=== PATIENT | female | born 1955 | race Caucasian/White ===

== ENCOUNTER → 2017-01-07 | Outpatient (CLI) | payer OTHER ==
[~2017-01-07] MED LIST: ANAS1TAB19 PO; ATEN-173 PO; CALC-51 PO; CAND32TA2 PO; CERTKIT SQ; CHOL100010 PO; CLB/200 PO; CYAN100020 PO; GABA-113 PO; GING1CAP2 PO; LEVO75TA5 PO; MULT-506 PO; OMEGCAP2 PO; tumeric PO
[2017-01-07 17:44] LABS: THYROID STIMULATING HORMONE 1.08 uIu/ml (0.300-4.500)
== END | disposition home or self-care (01) ==
LOC: C.LABPBG 11:18
PROVIDERS: ATTEND Family Medicine
DX: E03.9 Hypothyroidism, unspecified (principal)

== ENCOUNTER → 2017-02-16 | Outpatient (CLI) | payer OTHER ==
--- NOTE | 2017-04-01 09:57 | CODING QUERY MEDICAL NECESSITY ---
SUPPORTING DIAGNOSIS NEEDED A supporting diagnosis is required for the test/procedure performed on this patient in order for us to be reimbursed by the patient's insurance. Please provide a supporting diagnosis for the following test/procedure listed below next to the test name along with your signature. *If there is no additional diagnosis for this patient that would support the following test/procedure please document that below next to the test/procedure. Test(s)/Procedure(s) that require a supporting diagnosis: * DXA, BONE DENSITY AXIAL DIAGNOSIS: Provider Signature: Date: Thank you Melba [employer] Information Management Once completed, please kindly fax back to [phone] For questions please call [phone]
== END | disposition home or self-care (01) ==
LOC: C.MAMM 12:29
PROVIDERS: ATTEND Internal Medicine Hematology & Oncology
DX: C50.919 Malignant neoplasm of unspecified site of unspecified female breast (principal); M85.851 Other specified disorders of bone density and structure, right thigh; M85.852 Other specified disorders of bone density and structure, left thigh

== ENCOUNTER → 2017-08-11 | Outpatient (CLI) | payer OTHER ==
[~2017-08-11] MED LIST changes: -OMEGCAP2 PO
[2017-08-11 12:58] LABS: BASO ABS # 0.08 K/uL (0-0.2); EOS % 6.5 %; EOS ABS # 0.51 K/uL (0-0.5); HEMATOCRIT 39.9 % (37-47); HEMOGLOBIN 13.2 g/dL (12.0-16.0); IG# 0.02 K/uL (0.00-0.02); LYMPH % 29.4 %; MEAN CELL VOLUME 93.7 fL (80-100); MEAN CORPUSCULAR HGB CONC 33.1 g/dl (32-36); MEAN PLATELET VOLUME 9.3 fL (7.4-10.4); MONO % 8.7 %; MONO ABS # 0.68 K/uL (0.11-0.59); NEUT % 54.1 %; NEUT ABS # 4.23 K/uL (1.4-6.5); PLATELET COUNT 235 K/uL (130-400); RED CELL DISTRIBUTION WIDTH CV 14.3 % (11.5-14.5); RED CELL DISTRIBUTION WIDTH SD 48.8 fL (36.4-46.3); WHITE BLOOD COUNT 7.82 K/uL (4.8-10.8)
[2017-08-11 13:18] LABS: ALBUMIN 3.8 gm/dl (3.4-5.0); ALT/SGPT 143 U/L (12-78); AST/SGOT 82 U/L (15-37); BLOOD UREA NITROGEN 12 mg/dl (7-18); CALCIUM 9.3 mg/dl (8.5-10.1); CARBON DIOXIDE 28 mmol/L (21-32); CREATININE 0.82 mg/dl (0.60-1.20); GLUCOSE 104 mg/dl (70-99); POTASSIUM 4.3 mmol/L (3.5-5.1); SODIUM 140 mmol/L (136-145)
[2017-08-11 13:21] LABS: ALKALINE PHOSPHATASE 81 U/L (45-117); TOTAL PROTEIN 8.2 gm/dl (6.4-8.2)
== END | disposition home or self-care (01) ==
LOC: C.LABPBG 11:04
PROVIDERS: ATTEND Internal Medicine Hematology & Oncology
DX: C50.912 Malignant neoplasm of unspecified site of left female breast (principal)

== ENCOUNTER → 2017-08-19 | Outpatient (CLI) | payer OTHER ==
[~2017-08-19] MED LIST changes: +MELO7.5T5 PO; +losartin
[2017-08-19 13:04] VITALS: BP 139/80; PULSE 66; TEMP 36.8; O2SAT 96
--- NOTE | 2017-08-19 13:59 | Radiation Oncology Follow-Up ---
Radiation Oncology Follow-Up Date of Visit Aug 19, 2017. Reason For Visit 6 month follow up Radiation Completion Date 12/22/16 Diagnosis (1) Breast cancer Status: Acute Onset Date: 09/11/2016 Histology Subtype: ductal Stage: l Permanent Comment: Abnormal right breast mammogram 08/14/2016 Status post stereotactic biopsy 08/27/2016 revealing invasive ductal carcinoma, grade 3 Estrogen receptor positive, progesterone receptor positive, HER-2/nerissa negative Status post MRI Status post mammotome biopsy right breast 10/02/2016 benign Status post partial mastectomy and sentinel lymph node biopsy 10/09/2016 Stage pT1b [id number] Oncotype DX 24 Status post completion of radiation therapy utilizing hypo-fractionation. Treatment completed 12/22/2016. She received 5130 cGy. Last Edited By: Tiffany Franklin on Jan 06, 2017 09:47 History of Present Illness Ms. Cavazos is a 61-year-old female with a history of psoriatic arthritis and rheumatoid arthritis who recently presented for her routine screening mammography on 08/14/2016 which did reveal a concerning mass in the right breast at the 12 o'clock position. The patient underwent a biopsy of the right breast mass on 08/27/2016 which revealed invasive ductal carcinoma that was grade 3 (no hormonal receptor information is available from pathology report). The patient was then referred to Dr. Robbins at [facility] [place]. The patient subsequently underwent a bilateral MRI of the breast on 09/16/2016 which revealed a peripherally enhancing mass the right breast which measured 1.7 cm in the greatest dimension as well as a linear non-mass enhancement in the right breast in the 7 o'clock position. The patient then underwent a biopsy of the lesion at the 7 o'clock position in the right breast that only revealed ductal hyperplasia and no evidence of malignancy. The patient then underwent a right breast lumpectomy and sentinel lymph node biopsy on 10/09/2016 which revealed invasive ductal carcinoma that is grade 3 and measured 0.8 cm in the greatest dimension. There was no evidence of lymphovascular space invasion and the margins were negative for both invasive ductal carcinoma and ductal carcinoma in situ. The tumor is estrogen receptor positive, progesterone receptor positive and HER-2 negative. One sentinel lymph node was excised and that was negative for metastatic carcinoma. The Oncotype DX study was sent by Dr. Robbins and the results are pending. Patient underwent CT seen in relation and was found to be a candidate for hypo- fractionation. She completed treatment 12/16/2016. She received 5130 cGy. The patient was seen in consultation by Dr. Raffy Lawrence for medical oncology. Dr. Lawrence discussed potentially systemic chemotherapy and is awaiting the results from the Oncotype DX study; the patient will be seen again in follow-up with medical oncology next week to discuss the results of the Oncotype DX study. Dr. Lawrence is also recommended consideration of anti- hormonal therapy. The Oncotype DX was 24. She will return to our office and had a CT simulation. She was found to be a candidate for hypo-fractionation. Radiation was completed 12/22/2016. She received 5130 cGy. Interim History She has noted no masses of the breast. She does have some tenderness of the lateral side of the breast. She also notices some fullness when she first gets up in the morning. She sleeps on her right side. There is no visible edema. The fullness then resolves quickly after she is up and moving. Because of the sensitivity of the chest wall wearing a bra is uncomfortable. She does not wear her bra then when she is home. She has had follow-up mammography. She is scheduled for a mammogram in [place]. She will have a copy of all of the results forwarded to our office. Allergies Coded Allergies: Morphine (Verified Allergy, Unknown, Cough, vomiting, and urinary retention, 11/04/16) Sulfamethoxazole w/Trimethoprim (Verified Allergy, Unknown, Itchy rash, 11/04/16) Home Medications Scheduled Anastrozole (Arimidex), 1 TAB PO DAILY Atenolol (Tenormin), 25 MG PO DAILY Calcium Carbonate-Vitamin D (Calcium), 800 MG PO DAILY Certolizumab Pegol (Cimzia), 200 MG SQ MONTHLY Cholecalciferol (Vitamin D), 1,000 INTER.UNIT PO DAILY Cyanocobalamin (Vitamin B12), 1 TAB PO DAILY Gabapentin (Neurontin), 300 MG PO BID Nona (Zingiber Officinalis) (Nona Root), 1 CAP PO BID Levothyroxine Sodium (Levothyroxine Sodium), 1 TAB PO DAILY Meloxicam (Mobic), 15 MG PO DAILY Multivitamin (Multivitamin), 1 TAB PO DAILY [losartin], 100 d [tumeric], 1 CAP PO BID Review of Systems Gastrointestinal: Symptoms: WNL Oral: Symptoms: No Problems Respiratory: Symptoms: WNL Urinary: Symptoms: WNL Skin: Symptoms: No Problems Breast: Right Upper Arm Measurement: 28.5 Right Mid Arm Measurement: 25.5 Right Wrist Measurement: 17.0 Left Upper Arm Measurement: 29.0 Left Mid Arm Measurement: 25.0 Left Wrist Measurement: 17.0 Arm Dominence: Right Physical Exam Vital Signs Date Time Temp Pulse Resp B/P (MAP) Pulse Ox O2 Delivery O2 Flow Rate FiO2 08/19/17 13:04 36.8 66 18 139/80 96 Fatigue: None General Appearance: no apparent distress Eyes: normal inspection, EOMI ENT: normal ENT inspection, hearing grossly normal Neck: no adenopathy, thyroid normal Respiratory/Chest: lungs clear, no respiratory distress, no accessory muscle use Breast: Breast examination reveals well-healed incisions of the right breast. There are no masses or tenderness no axillary adenopathy. She has resolving hyperpigmentation. There is small amount of edema centrally of the breast. Using the [place] score cosmesis she has a good outcome. Left breast showed no masses or tenderness and no axillary adenopathy. Cardiovascular: regular rate, rhythm, no gallop, no murmur Abdomen: non tender, soft Extremities: no pedal edema Neurologic/Psychiatric: no motor/sensory deficits, alert, normal mood/affect Skin: warm/dry Pain Management Patient Reports Pain: No Pain Location: None Patient Preferred Pain Scale: 0 - 10 Initial Pain Intensity: 0.0 Pain Management Plan Her pain is currently controlled. Laboratory Laboratory Results: not applicable Pathology Pathology Results: not applicable Imaging Imaging Studies: were reviewed, and pertinent findings noted below Assessment & Plan She was seen and examined by Dr. Salguero. Continue scheduled mammography. She has a mammogram scheduled in [place] later this month. Dr. Lawrence has sent an order. She continues on Arimidex. Continue follow-up with medical oncology and her primary care physician as well as rheumatologists. We asked her to return to our office in 1 year. She may call our office if she has any questions or concerns in the interim. Assessment & Plan (Attending) ADDENDUM: I agree with note created by Tiffany Franklin PA-C. I reviewed the patient's chart and information with her. I have examined and evaluated the patient. I reviewed relevant clinical information and answered the patient's and /or family's questions. DIRECTOR MEDICAL SURGICAL Total Time In Follow-Up I spent 20 minutes speaking to the patient and performing examination. I spent 15 minutes reviewing information and completing this note. Total Time (Attending) In Follow-Up I spent 15 minutes examining and counseling the patient. DIRECTOR MEDICAL SURGICAL Copy To Raffy Lawrence MD; Dusty Posadas M.D.; Purnima Robbins D.O.; Avila Bowie D.O. Problem Qualifiers (1) Breast cancer: Breast location: upper outer quadrant of breast Estrogen receptor status: positive Patient sex: female Laterality: right Qualified Codes: C50.411 - Malignant neoplasm of upper-outer quadrant of right female breast; Z17.0 - Estrogen receptor positive status [ER+]
== END | disposition home or self-care (01) ==
LOC: C.ONC 12:53
PROVIDERS: ATTEND Physician Assistant Medical
DX: Z08 Encounter for follow-up examination after completed treatment for malignant neoplasm (principal); Z92.3 Personal history of irradiation; Z85.3 Personal history of malignant neoplasm of breast

== ENCOUNTER → 2017-11-19 | Outpatient (CLI) | payer OTHER ==
[~2017-11-19] MED LIST changes: -CAND32TA2 PO; -CLB/200 PO
[2017-11-19 13:04] LABS: BASO % 1.5 %; BASO ABS # 0.13 K/uL (0-0.2); EOS % 7.2 %; EOS ABS # 0.62 K/uL (0-0.5); HEMATOCRIT 40.5 % (37-47); HEMOGLOBIN 13.8 g/dL (12.0-16.0); IG# 0.02 K/uL (0.00-0.02); LYMPH % 29.7 %; LYMPH ABS # 2.56 K/uL (1.2-3.4); MEAN CORPUSCULAR HGB CONC 34.1 g/dl (32-36); MEAN PLATELET VOLUME 9.3 fL (7.4-10.4); MONO % 9.2 %; MONO ABS # 0.79 K/uL (0.11-0.59); NEUT % 52.2 %; NEUT ABS # 4.49 K/uL (1.4-6.5); PLATELET COUNT 266 K/uL (130-400); RED CELL DISTRIBUTION WIDTH CV 13.8 % (11.5-14.5); RED CELL DISTRIBUTION WIDTH SD 47.6 fL (36.4-46.3); WHITE BLOOD COUNT 8.61 K/uL (4.8-10.8)
[2017-11-19 14:11] LABS: ALT/SGPT 141 U/L (12-78); AST/SGOT 77 U/L (15-37); BLOOD UREA NITROGEN 13 mg/dl (7-18); CALCIUM 9.9 mg/dl (8.5-10.1); CARBON DIOXIDE 27 mmol/L (21-32); CREATININE 0.89 mg/dl (0.60-1.20); GLUCOSE 88 mg/dl (70-99); SODIUM 138 mmol/L (136-145)
[2017-11-19 14:12] LABS: ALKALINE PHOSPHATASE 94 U/L (45-117); TOTAL PROTEIN 8.7 gm/dl (6.4-8.2)
== END | disposition home or self-care (01) ==
LOC: C.LABPBG 10:22
PROVIDERS: ATTEND Internal Medicine Hematology & Oncology
DX: C50.912 Malignant neoplasm of unspecified site of left female breast (principal)

== ENCOUNTER → 2018-03-09 | Outpatient (CLI) | payer OTHER ==
[~2018-03-09] MED LIST changes: -ANAS1TAB19 PO; +ANAS1TAB59 PO; +OPTIRAY 320 IV PRN
--- NOTE | 2018-03-09 16:31 | DIAGNOSTIC IMAGING REPORT ---
CT (CHEST) THORAX WITH CT DOSE: 635.80 mGy.cm HISTORY: Pain RIGHT RIB PAIN, NEW ONSET RUQ PAIN TECHNIQUE: Multiaxial CT images of the chest were performed following the intravenous administration of contrast. A dose lowering technique was utilized adhering to the principles of ALARA. COMPARISON: None. FINDINGS: Postoperative changes right breast. Lungs are considered clear. No focal infiltrate. No significant mediastinal or hilar adenopathy. IMPRESSION: No significant abnormality identified within the chest. The above report was generated using voice recognition software. It may contain grammatical, syntax or spelling errors. Electronically signed by: Jeferson Malone M.D. 03/09/2018 4:30 PM Dictated Date/Time: 03/09/2018 4:28 PM
--- NOTE | 2018-03-09 16:34 | DIAGNOSTIC IMAGING REPORT ---
ABD WITH IV AND ORAL CONT (CT) CT DOSE: HISTORY: Pain RIGHT RIB PAIN, NEW ONSET RUQ PAIN TECHNIQUE: Multiaxial CT images of the abdomen was performed following the use of intravenous and oral contrast. A dose lowering technique was utilized adhering to the principles of ALARA. COMPARISON STUDY: None. FINDINGS: Lung bases are clear. Postoperative changes again noted involving the right breast. Replacement of the liver. Gallbladder is negative for distention. Kidneys enhance uniformly. The adrenal glands are normal. Diffuse colonic diverticulosis. No evidence for acute diverticulitis. IMPRESSION: Fatty infiltration of liver. Otherwise negative study. The above report was generated using voice recognition software. It may contain grammatical, syntax or spelling errors. Electronically signed by: Jeferson Malone M.D. 03/09/2018 4:33 PM Dictated Date/Time: 03/09/2018 4:30 PM
== END | disposition home or self-care (01) ==
LOC: C.CTS 10:25
PROVIDERS: ATTEND Internal Medicine Hematology & Oncology
DX: C50.912 Malignant neoplasm of unspecified site of left female breast (principal); R07.81 Pleurodynia; R10.11 Right upper quadrant pain

== ENCOUNTER 2022-03-31 05:10 | Observation (INO) ==
--- NOTE | 2022-03-30 10:23 | Anesthesiology Consultation ---
Date of Service March 30, 2022 Assessment & Plan (1) Encounter for pre-operative examination: - COVID screening: Per assessment on 03/30: No known COVID-19 positive contacts or current COVID-19 related symptoms. Travel screen negative. Pt vaccinated. Preop Covid test done 03/30 ([place]) is pending. - Outpatient joint pathway: Per OR booking comments, plan for outpatient joint program. Patient is acceptable candidate for outpatient joint program from anesthesia standpoint pending perioperative course. Surgeon's office responsible for assessment of pt motivation/support/completion of same day joint program preop requirements. - PCP office visit (03/17/22): "OK for sx" - Check [facility] AM DOS Chart Review Chart Review: Acceptable Risk for Surgery and Patient NOT seen in Pre Admission Testing History Surgery Operation Date: 03/31/22 07:00 Proposed Procedures p Left Total Knee Arthroplasty - Isai Gordon DO Height/Weight Height: 5 ft 2 in Weight: 68.492 kg Allergies Allergy/AdvReac Type Severity Reaction Status Date / Time Bactrim Allergy Unknown Itchy rash Verified 11/04/16 11:01 morphine Allergy Unknown Cough, Verified 03/30/22 10:28 vomiting, and urinary retention sulfamethoxazole Allergy Unknown Itchy rash Verified 03/30/22 10:28 trimethoprim Allergy Unknown Itchy rash Verified 03/30/22 10:28 Medications Home Medications Medication Instructions Recorded Confirmed Last Taken denosumab 60 mg/mL subcutaneous 60 mg subcut UD 08/09/19 03/30/22 Unknown syringe (Prolia) losartan 100 mg tablet (Cozaar) 100 mg PO QAM 08/09/19 03/30/22 Unknown anastrozole 1 mg tablet 1 mg PO QAM 07/25/20 03/30/22 Unknown certolizumab pegol 400 mg/2 mL 400 mg subcut Q30D 07/25/20 03/30/22 Unknown (200 mg/mL x2) subcutaneous syringe kit gabapentin 300 mg capsule 300 mg PO BID 07/25/20 03/30/22 Unknown kvng (Zingiber officinalis) 250 250 mg PO QAM 07/25/20 03/30/22 Unknown mg capsule multivitamin (Daily Multi-Vitamin 1 tab PO UD 07/25/20 03/30/22 Unknown tablet) atenolol 25 mg tablet 25 mg PO QAM 03/30/22 03/30/22 Unknown calcium carbonate 600 mg-vitamin 1 tab PO UD 03/30/22 03/30/22 Unknown D3 20 mcg (800 unit) chewable tablet (Caltrate 600 plus D) cinnamon bark 500 mg capsule 500 mg PO QAM 03/30/22 03/30/22 Unknown levothyroxine 75 mcg tablet 75 mcg PO QAM 03/30/22 03/30/22 Unknown turmeric 400 mg capsule 400 mg PO QAM 03/30/22 03/30/22 Unknown Past Medical History Medical History Breast cancer Right Diabetes Diet controlled History of thyroid nodule Hx of degenerative disc disease Neck Hypertension Osteoarthritis Osteoporosis Rheumatoid arthritis Stenosis, cervical spine ROM limitations per pt- "Be careful" with positioning per PAT RN phone interview Past Family History Family History Mother Hypertension Family/Other No problems noted. Grandmother (Maternal) Breast cancer, Onset Age: 58 Denies family history of Ovarian cancer Colorectal cancer Uterine cancer Past Surgical History Surgical History History of lumpectomy of right breast and LND History of open reduction and internal fixation (ORIF) procedure IM rodding lt History of thyroid surgery marlena-thyroidectomy History of tubal ligation Hx of hand surgery lt middle finger Hx of total knee arthroplasty rt Nausea and vomiting after administration of anesthetic agent S/P S/P cataract surgery rt/lt S/P dilation and curettage S/P JENNIE-BSO S/P wisdom tooth extraction Social History Smoking Status: Never smoker Hx Alcohol Use: No Hx Substance Use: No Testing Laboratory Results 03/03/22 WBC 7.43 H/H 13.1/405 PLATELETS 265 SODIUM 139 POTASSIUM 4.3 CHLORIDE 108 CO2 27.0 BUN 14.8 CREATININE 0.93 GLUCOSE 90 PT 11.7 PTT 29.6 INR 1.01 UA trace leuk est, 1+ blood, negative nitrite (no growth on preliminary report) Electrocardiogram Date: 02/09/22 SR with first degree AVB at 61bpm. NS TWA. Chest X-Ray Date: 02/09/22 Findings: + NAD
--- NOTE | 2022-03-30 10:28 | History & Physical Report ---
Date of Service March 30, 2022 date of surgery: 03/31/22 Procedure: Left Total Knee Arthroplasty Surgeon: Iasi Gordon Assessment & Plan (1) Arthritis of knee, left: Plan: Risks and benefits of procedure discussed in detail today, patient would like to proceed with a left total knee replacement as scheduled. Will place on ASA 81mg po bid x 1 month post op, f/u 2 weeks post op for routine post-operative care and x-ray, sooner if having any problems. will make arrangements for HHPT at the time of discharge, outpatient joint program. At this point in time, has failed conservative measures and would like to proceed with surgical intervention. Schedule for Iovera treatment prior to her surgery. The risks and benefits have been discussed including, but not limited to, risk of infection, nerve injury, stiffness, loss of motion, failure to improve, etc. Reasonable outcomes and options of treatment were discussed. An explanation of appropriate alternatives to the procedure that may be advantageous were discussed and their risks and benefits, as well as the risks and benefits of not proceeding with treatment. I offered to answer any additional inquiries concerning the treatment involved. All the patient's questions were answered. The patient is agreeable, understanding of the treatment plan and alternatives, and wishes to proceed with the treatment plan. History of Present Illness Chief Complaint: left knee pain Primary Care Provider: Avila Rodriguez is a pleasant 66-year-old female who presents for preop evaluation prior to left total knee replacement. She states she had a pain in his knee for many years now which is gradually worsened. Is now affecting her daily activities i ncluding walking standing on down steps. She tried previous injections including cortisone as well as viscosupplementation without relief, she is also undergoing Iovera injection prior. After discussing further treatment options she would like to proceed with a left total knee replacement. she also had prior left knee scope over 20 years ago. Allergies Allergy/AdvReac Type Severity Reaction Status Date / Time Bactrim Allergy Unknown Itchy rash Verified 11/04/16 11:01 morphine Allergy Unknown Cough, Verified 03/30/22 10:28 vomiting, and urinary retention sulfamethoxazole Allergy Unknown Itchy rash Verified 03/30/22 10:28 trimethoprim Allergy Unknown Itchy rash Verified 03/30/22 10:28 Home Medications Medication Instructions Recorded Confirmed Type denosumab 60 mg/mL subcutaneous 60 mg subcut UD 08/09/19 03/30/22 History syringe (Prolia) losartan 100 mg tablet (Cozaar) 100 mg PO QAM 08/09/19 03/30/22 History anastrozole 1 mg tablet 1 mg PO QAM 07/25/20 03/30/22 History certolizumab pegol 400 mg/2 mL 400 mg subcut Q30D 07/25/20 03/30/22 History (200 mg/mL x2) subcutaneous syringe kit gabapentin 300 mg capsule 300 mg PO BID 07/25/20 03/30/22 History kvng (Zingiber officinalis) 250 250 mg PO QAM 07/25/20 03/30/22 History mg capsule multivitamin (Daily Multi-Vitamin 1 tab PO UD 07/25/20 03/30/22 History tablet) atenolol 25 mg tablet 25 mg PO QAM 03/30/22 03/30/22 History calcium carbonate 600 mg-vitamin 1 tab PO UD 03/30/22 03/30/22 History D3 20 mcg (800 unit) chewable tablet (Caltrate 600 plus D) cinnamon bark 500 mg capsule 500 mg PO QAM 03/30/22 03/30/22 History levothyroxine 75 mcg tablet 75 mcg PO QAM 03/30/22 03/30/22 History turmeric 400 mg capsule 400 mg PO QAM 03/30/22 03/30/22 History Past Med/Surg History Medical History Breast cancer rt. Diabetes diet controlled History of thyroid nodule Hx of degenerative disc disease neck, ROM is limited Hypertension Nausea and vomiting after administration of anesthetic agent Osteoarthritis Osteoporosis Rheumatoid arthritis Stenosis, cervical spine "has to be careful w/neck positioning" ROM is limited Surgical History History of lumpectomy of right breast and LND History of open reduction and internal fixation (ORIF) procedure IM rodding lt. History of thyroid surgery marlena-thyroidectomy History of tubal ligation Hx of hand surgery lt. middle finger Hx of total knee arthroplasty rt. S/P S/P cataract surgery rt/lt. S/P dilation and curettage S/P JENNIE-BSO S/P wisdom tooth extraction Family History Mother Hypertension Family/Other No problems noted. 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 Review of Systems Review of Systems: All systems reviewed & are unremarkable except as noted in HPI & below Constitutional: no fever, no chills and no sweats Respiratory: no cough and no dyspnea Cardiovascular: no chest pain, no dyspnea and no orthopnea Gastrointestinal: no abdominal pain, no nausea and no vomiting Musculoskeletal: as per Subjective / HPI Physical Exam Constitutional: WD/WN, vitals as above no acute distress Respiratory: normal respiratory effort, lungs clear to auscultation no respiratory distress, no labored breathing and does not use accessory muscles Cardiovascular: RRR, no murmur, no edema Gastrointestinal (Abdomen): normal bowel sounds, soft, nontender, no hepatosplenomegaly Musculoskeletal: Knee: + knee abnormal to inspection (Left Knee: ), + effusion (+1 effusion), + surgical incision (well healed portals), + limited ROM of knee (ROM 0/3/110), + knee ROM with crepitation, + joint line tenderness (medial joint line) and + Roro's sign positive; no deformity, no skin erythema, no ecchymosis, no valgus laxity, no varus laxity, anterior drawer test negative, Justice's sign negative and pivot shift test negative Results & Data Results & Data ([facility]) Diagnostic Findings 4 views left knee showing degenerative changes noted medial compartment and patellofemoral joint, joint space narrowing and osteophyte present.
[2022-03-31] MEDS ORDERED: GABAPENTIN 300 MG CAP PO SCH (06:00)
[2022-03-31] MEDS ORDERED: LR 500ML BOLUS, THEN 15ML/HR IV SCH (06:00)
[2022-03-31] MEDS ORDERED: ceFAZolin 1000MG 1,000 MG/7.5 ML SYR IV SCH (06:00)
[2022-03-31] MEDS ORDERED: TRANEXAMIC ACID 1,000 MG **IV Pre-op IV SCH (06:00)
[2022-03-31] MEDS ORDERED: TRANEXAMIC ACID 1,000 MG **IV Intra-op IV SCH (06:00)
[2022-03-31] MEDS ORDERED: ACETAMINOPHEN 500 MG TAB PO SCH (06:00)
[2022-03-31] MEDS ORDERED: dexAMETHasone 4 MG TAB PO SCH (06:00)
[2022-03-31] MEDS ORDERED: ROPIVACAINE 0.5% HCL/PF 150 MG, BUPIVACAINE 0.75% MPF 20 ML, EPINEPHrine 30MG/30ML (OR ... INFIL SCH (06:00)
[2022-03-31] MEDS ORDERED: METOCLOPRAMIDE HCL 10 MG TABLET PO SCH (06:00)
[2022-03-31] MEDS ORDERED: FAMOTIDINE 20 MG TAB PO SCH (06:00)
[2022-03-31] MEDS ORDERED: ROPIVACAINE 0.5% 5 MG/ML 30 ML VIAL ONE (06:23)
[2022-03-31] MEDS ORDERED: MEPIVACAINE HCL 1.5% 30 ML VIAL ONE (06:23)
[2022-03-31] MEDS ORDERED: MIDAZOLAM HCL 1 MG/ML 2ML VIAL ONE (06:24)
[2022-03-31] MEDS ORDERED: fentaNYL citrate 100 MCG/2 ML VIAL ONE (06:25)
[2022-03-31] MEDS ORDERED: ORTHO JOINT ANESTHETIC ONE (06:33)
[2022-03-31] MEDS ORDERED: ATROPINE SULFATE 0.1 MG/ML 10ML SYR IV PRN (06:46)
[2022-03-31] MEDS ORDERED: ePHEDrine sulfate 50 MG/ML AMP IV PRN (06:46)
[2022-03-31] MEDS ORDERED: fentaNYL citrate 100 MCG/2 ML VIAL IV PRN (06:46)
[2022-03-31] MEDS ORDERED: ONDANSETRON INJ 2 MG/ML 2 ML VIAL IV PRN ×3 (06:46→15:55)
--- NOTE | 2022-03-31 07:11 | History & Physical Bridge Note ---
Date of Service March 31, 2022 History & Physical Bridge Note I have examined the patient, reviewed the History & Physical and in the interval since the performance of the History & Physical I have noted the following changes of clinical significance: no changes noted
[2022-03-31] MEDS ORDERED: PROPOFOL IV EMULSION 10 MG/ML 20 ML VIAL IV ONE (07:34)
[2022-03-31] MEDS ORDERED: ONDANSETRON INJ 2 MG/ML 2 ML VIAL ONE ×2 (07:34→08:51)
--- NOTE | 2022-03-31 08:29 | Operative Report ---
Post Operative Report Pre & Post Diagnosis Operation Date: 03/31/22 07:00 Pre-Op Diagnosis: Left Knee Degeneartive Joint Disease Post-Op Diagnosis: Left Knee Degeneartive Joint Disease I identified the patient and participated in the time-out.: Yes Procedure Operation Date: 03/31/22 07:00 Actual Procedures p Left Total Knee Arthroplasty(Left) Terell Biomet persona size femur 7 narrow tibia EE polytwelve medial constrained patella 28 oval- Isai Gordon DO Surgeon Isai Gordon DO Circuit Board Assembler Zion RUSSELL Estimated Blood Loss 5 Findings Consistent with Post-Op Diagnosis Patient presents with severe end-stage tricompartmental degenerative joint disease eburnated [id number] varus alignment subchondral sclerosis marginal osteophytes and moderate to large effusion Specimens Bone and cartilage Drains Medium bore Hemovac Anesthesia Type MAC Spinal Regional Complications none Disposition Accompanied Patient To Recovery: No Disposition: Recovery Room Indications Patient presents after failed attempted conservative management clinic physical therapy anti-inflammatories relative rest activity modification corticosteroid injection viscosupplementation above intraoperative findings were noted Description of Procedure After proper prepping and draping of the left lower extremity anterior midline incision was made over the region of the extensor extensor mechanism after meticulous hemostasis was obtained and maintained in subcutaneous tissues a medial parapatellar incision was made The patella was subluxed lateralward the medial lateral gutter were cleaned from any hypertrophic synovitis and scar tissue of the distal femoral block was placed and the distal femoral osteotomy cut was made subsequently the chamfers anterior and posterior osteotomy cuts were made utilizing the 4-in-1 block the tibia was subsequently subluxed anteriorward medial and ateral meniscal remnants were excised in their entirety remnants of the anterior and posterior cruciate ligaments were excised in their entirety excellent exposure of the proximal tibia was obtained the tibial osteo sukh guide was placed on the proximal tibial osteotomy cut was made once again the knee was irrigated with copious amounts of sterile saline solution the patella was subsequently everted lateralward thickened scar tissue around the patella was removed the patella was subsequently cut utilizing a freehand technique and was drilled prepared for final preparation and placement of patella socially flexion-extension gaps were checked and the equal and symmetric trials were placed to the appropriate femoral and tibial trials with poly-spacer being placed for equal flexion and extension gaps and full range of motion including extension to 0 and flexion to 140 the trial components after having been taken to recovery range of motion was subsequently removed meticulous hemostasis was obtained and maintained subsequently a knee block injection of joint cocktail including ropivacaine 0.5% 150 mg. Bupivacaine 0.5% epinephrine 1-200,030 mL's toradol 30 mg dexamethasone 4 mg ketamine 10 mg clonidine 100 micrograms normal saline solution 30 mg was infiltrated into the soft tissues of the posterior knee medial lateral gutters and periosteal synovium special attention was paid to protect neurovascular structures at all times subsequently trial components having been removed the knee was irrigated with sterile saline solution. debris was removed the proximal tibia was subsequently prepared and was made ready for the placement of the tibial component tibial component was also cemented and tamped into position the femoral component was subsequently placed and cemented in the position the patellar component was subsequently cemented in position because hemostasis once again obtained and maintained wound having been thoroughly irrigated with debridement and debridement lavage was performed as well as a medial parapatellar incision closed with #1 Vicryl in interrupted fashion subcutaneous was closed with #2 Vicryl skin was closed with skin clips. PA-C was necessary for prepping and drapping as well as wound closure of deep fascia Sub cutaneous tissue and skin and was necessary for the case. A sterile compressive dressing was placed patient was taken to recovery in stable condition of report dictated by Evan I attest to the content of the Intraoperative Record and any orders documented therein. Any exceptions are noted below.Due to the complex nature of the proce dure, the entire surgery was performed with the operational assistance of Zion RUSSELL. The camp assistant, under direct supervision, was involved in the actual performance of all aspects of the surgical procedure including hemostasis, tissue retraction and incision, instrument management, patient positioning, and wound closure. I attest to the content of the Intraoperative Record and any orders documented therein. Any exceptions are noted below.
[2022-03-31] MEDS ORDERED: KETOROLAC 30 MG/ML VIAL ONE (08:46)
[2022-03-31] MEDS ORDERED: HYDROmorphone INJ 0.5 MG/0.5 ML SYR IV PRN ×2 (09:09→15:55)
[2022-03-31] MEDS ORDERED: oxyCODONE HCL IR 5 MG TAB (IMMEDIATE RELEASE) PO PRN ×2 (09:09)
--- NOTE | 2022-03-31 09:30 | XRay Report ---
XR knee LT 1 or 2V routine CLINICAL HISTORY: Postoperative evaluation. COMPARISON: CT of the left knee February 04, 2022. FINDINGS: Alignment of the total left knee arthroplasty is anatomic. There is no periprosthetic frac ture or lucency. Intramedullary sandhya with distal screw within the left femur are again noted. Surgical drains are in place. No unexpected radiopaque foreign bodies. IMPRESSION: Expected findings following total left knee arthroplasty. ACT 112: Negative or not required by law. Electronically signed by: Gaurav Caballero M.D. 03/31/2022 9:29 AM
--- NOTE | 2022-03-31 09:43 | Anesthesiology Progress Note ---
Date of Service March 31, 2022 Anesthesia Post Procedure Vital Signs Vital Signs: Temp Pulse Resp BP Pulse Ox O2 Del Method O2 Flow Rate 03/31/22 09:35 60 14 102/51 L 96 Room Air 03/31/22 09:25 60 12 103/51 L 97 Room Air 03/31/22 09:15 69 20 114/62 98 Oxymask 5 03/31/22 09:08 98.8 F 66 16 105/50 L 95 Oxymask 5 03/31/22 05:41 98.2 F 52 L 18 147/95 H 93 Room Air Transfer of Care Handoff Completed per policy Notes Mental Status: alert / awake / arousable and participated in evaluation Patient Amnestic to Procedure: Yes Nausea / Vomiting: adequately controlled Pain: adequately controlled Airway Patency, RR, SpO2: stable & adequate BP & HR: stable & adequate Hydration State: stable & adequate Neuraxial Anesthesia: was administered and sensory block is resolving Anesthetic Complications: no major complications apparent and Pt Satisfied with anesthetic care
[2022-03-31] MEDS ORDERED: NALOXONE HCL 0.4 MG/1 ML VIAL/CARP IV PRN (15:55)
[2022-03-31] MEDS ORDERED: MAGNESIUM HYDROXIDE SUSP 30 ML UDC PO PRN (15:55)
[2022-03-31] MEDS ORDERED: bisacodyL 10 MG SUPP PR PRN (15:55)
[2022-03-31] MEDS: SODIUM CHLORIDE 0.9% 1000ML 1,000 ML IV SCH ×2 (16:38→22:14)
[2022-03-31] MEDS: ASPIRIN 81 MG ECTAB PO SCH (19:54)
[2022-03-31] MEDS: DOCUSATE SODIUM 100 MG CAP PO SCH (19:55)
[2022-03-31] MEDS: GABAPENTIN 300 MG CAP PO SCH (19:56)
[2022-03-31] MEDS: ceFAZolin 1000MG 1,000 MG/7.5 ML SYR IV SCH (19:57)
[2022-03-31] MEDS ORDERED: CALCIUM 600MG + VIT D 400 IU TAB PO SCH (20:00)
[2022-03-31] MEDS ORDERED: SENNA 8.6 MG TAB PO SCH (21:00)
--- NOTE | 2022-03-31 21:10 | Consultation ---
Date of Consultation March 31, 2022 Assessment & Plan (1) Hypotension: improved s/p IV fluids following admission. formal set of orthostatic BPs taken after my visit - these were negative/normal. 500cc more of IV fluid then saline lock. recheck CBC, BMP, mag in am. HOLD atenolol. HOLD losartan. consider cortisol level but hold off for now. (2) Hypertension: HOLD atenolol HOLD losartan see #1 above (3) Diabetes: last hemoglobin a1c was 5.8% in early 2021 repeat level am check BSGs while here change diet to DM diet (4) Arthritis of knee, left: s/p left TKR today by Dr Gordon DVT proph - asa 81mg BID defer pain meds, dispo, etc to ortho team (5) Breast cancer: h/o noted (6) Rheumatoid arthritis: history of noted no active flare f/u with rheum (Dr Bernard) for routine care (7) Hypothyroidism: TSH wnl cont synthroid (8) DVT prophylaxis: asa 81mg BID Plan Thank you for this consult. We will follow with you. History of Present Illness Requesting Physician: Isai Gordon DO Reason for Consultation: post-op hypotension Attending Physician: Isai Gordon DO History of Present Illness 66yo female with h/o RA (and/or psoriatic arthritis) - followed by [facility] Rheumat[facility] Dr Dusty Bernard, HTN, breast cancer, and hypothyroidism. Patient presented earlier today for elective left TKR. Surgery was uneventful; reported EBL of ~5cc. Following recovery in the PACU she attempted to ambulate as she was scheduled to be discharged to home. However, she felt dizzy with such, and her BP was found to be low - documented <100. Instead of discharge she was admitted to the orthopedic floor for observation and IV fluids. During my assessment she reports having had an episode of nausea with emesis after drinking iced tea. She was able to keep some solids down at dinner, however. She denies any dizziness at rest. She denies chronic prednisone use for her arthritis. She is hopeful to ambulate this evening and potentially go home tomorrow. She denies any perioperative chest pain, dyspnea or abd pain. Allergies Allergy/AdvReac Type Severity Reaction Status Date / Time morphine Allergy Severe Cough, Verified 03/31/22 05:36 vomiting, and urinary retention sulfamethoxazole Allergy Intermediate Itchy rash Verified 03/31/22 05:36 trimethoprim Allergy Intermediate Itchy rash Verified 03/31/22 05:36 Bactrim Allergy Unknown Itchy rash Verified 11/04/16 11:01 Home Medications Medication Instructions Recorded Confirmed Type denosumab 60 mg/mL subcutaneous 60 mg subcut UD 08/09/19 03/31/22 History syringe (Prolia) losartan 100 mg tablet (Cozaar) 100 mg PO QAM 08/09/19 03/31/22 History anastrozole 1 mg tablet (Arimidex) 1 mg PO QAM 07/25/20 03/31/22 History certolizumab pegol 400 mg/2 mL 400 mg subcut Q30D 07/25/20 03/31/22 History (200 mg/mL x2) subcutaneous syringe kit (Cimzia) gabapentin 300 mg capsule 300 mg PO BID 07/25/20 03/31/22 History kvng (Zingiber officinalis) 250 250 mg PO QAM 07/25/20 03/31/22 History mg capsule multivitamin (Daily Multi-Vitamin 1 tab PO UD 07/25/20 03/31/22 History tablet) atenolol 25 mg tablet 25 mg PO QAM 03/30/22 03/31/22 History calcium carbonate 600 mg-vitamin 1 tab PO UD 03/30/22 03/31/22 History D3 20 mcg (800 unit) chewable tablet (Caltrate 600 plus D) cinnamon bark 500 mg capsule 500 mg PO QAM 03/30/22 03/31/22 History levothyroxine 75 mcg tablet 75 mcg PO QAM 03/30/22 03/31/22 History acetaminophen 500 mg capsule 1,000 mg PO Q8H pain 14 days #84 03/31/22 Rx caps aspirin 81 mg tablet,delayed 81 mg PO BID 30 days #60 tabs 03/31/22 Rx release (Ecotrin Low Strength) cefadroxil 500 mg capsule 500 mg PO BID #28 caps 03/31/22 Rx oxycodone 5 mg tablet 5 mg PO Q4H PRN pain #30 tabs 03/31/22 Rx polyethylene glycol 3350 17 gram 17 g PO DAILY PRN constipation #5 03/31/22 Rx oral powder packet (Miralax) ea Patient History Medical History (Updated 04/01/22 @ 00:14 by Augustus Gonzalez) Breast cancer Right Diabetes Diet controlled History of thyroid nodule Hx of degenerative disc disease Neck Hypertension Osteoarthritis Osteoporosis Rheumatoid arthritis Stenosis, cervical spine ROM limitations per pt- "Be careful" with positioning per PAT RN phone interview Surgical History History of lumpectomy of right breast and LND History of open reduction and internal fixation (ORIF) procedure IM rodding lt History of thyroid surgery marlena-thyroidectomy History of tubal ligation Hx of hand surgery lt middle finger Hx of total knee arthroplasty rt Nausea and vomiting after administration of anesthetic agent S/P S/P cataract surgery rt/lt S/P dilation and curettage S/P JENNIE-BSO S/P wisdom tooth extraction Family History Mother Hypertension Family/Other No problems noted. 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 Physical Exam Physical Exam: gen - mildly pale but NAD, pleasant eyes - PERRL mouth - MM pasty neck - no JVD heart - RRR, s1 s2, 2/6 systolic murmur RUSB lungs - CTA b/l abd - soft NT ND BS+ ext - <1+ edema left ankle; pulses 2+ b/l musculo - left knee drain in place; dressings intact left knee neuro - strength 5/5 x 4 exts Results & Data ([facility]) Vital Signs (Past 12 Hours) Vital Signs Temp Pulse Pulse Resp BP Pulse Ox Pulse Ox 03/31/22 19:46 36.7 C 72 16 108/45 L 95 03/31/22 16:02 36.4 C L 70 18 139/87 95 03/31/22 15:46 62 18 115/61 96 03/31/22 14:44 65 19 96/52 L 96 03/31/22 13:52 69 18 123/71 97 03/31/22 14:24 97 03/31/22 12:52 60 18 102/52 L 96 03/31/22 11:50 61 18 106/57 L 96 03/31/22 10:50 61 18 113/60 97 03/31/22 09:50 58 L 17 99/55 L 94 03/31/22 10:20 36.5 C 62 16 108/57 L 94 03/31/22 09:45 36.6 C 63 18 104/55 L 95 03/31/22 09:35 60 14 102/51 L 96 03/31/22 09:25 60 12 103/51 L 97 03/31/22 09:15 69 20 114/62 98 03/31/22 09:08 37.1 C 66 16 105/50 L 95 O2 Del Method O2 Flow Rate O2 Flow Rate 03/31/22 19:46 Room Air 03/31/22 16:02 Room Air 03/31/22 15:46 Room Air 03/31/22 14:44 Room Air 03/31/22 13:52 Room Air 03/31/22 14:24 0 03/31/22 12:52 Room Air 03/31/22 11:50 Room Air 03/31/22 10:50 Room Air 03/31/22 09:50 Room Air 03/31/22 10:20 Room Air 03/31/22 09:45 Room Air 03/31/22 09:35 Room Air 03/31/22 09:25 Room Air 03/31/22 09:15 Oxymask 5 03/31/22 09:08 Oxymask 5 Laboratory Results last labs pre-operatively -- September 2021 last TSH - March 2022 (wnl) PG Care Time/CCT Total # of Minutes Spent Total Time Spent with Patient: Total time spent is greater than 50% in coordination of care (as documented) at patient's floor/unit and/or counseling patient: Coding Level of Care Code 95726 Subseq Obs Care Lvl 3 Diagnoses Hypotension I95.9 Hypertension I10 Diabetes E11.9 Arthritis of knee, left M17.12 Breast cancer C50.511; Z17.0 Breast location: lower outer quadrant of breast Estrogen receptor status: positive Patient sex: female Laterality: right Rheumatoid arthritis M06.9 Hypothyroidism E03.9 DVT prophylaxis Z29.9 (1) Breast cancer Breast location: lower outer quadrant of breast Estrogen receptor status: positive Patient sex: female Laterality: right Qualified Code(s): C50.511 - Malignant neoplasm of lower-outer quadrant of right female breast; Z17.0 - Estrogen receptor positive status [ER+]
[2022-03-31] MEDS ORDERED: SODIUM CHLORIDE 0.9% 500 ML IV SCH (22:00)
[2022-03-31] MEDS: ACETAMINOPHEN 500 MG TAB PO SCH (22:14)
[2022-04-01] MEDS: ceFAZolin 1000MG 1,000 MG/7.5 ML SYR IV SCH (04:52)
[2022-04-01] MEDS: ACETAMINOPHEN 500 MG TAB PO SCH (05:37)
[2022-04-01] MEDS ORDERED: LEVOTHYROXINE SODIUM 75 MCG TABLET PO SCH (06:30)
[2022-04-01 06:54] VITALS: BP 94/52; PULSE 74; TEMP 98.4; O2SAT 96
[2022-04-01 07:38] LABS: Hematocrit (blood only) 32.9 % (34.1-44.9); Hemoglobin 10.8 g/dl (12.0-16.0); Mean Corpuscular Hemoglobin 30.5 pg (25.0-34.0); Mean Corpuscular Hgb Conc 32.8 g/dL (32.0-36.0); Mean Corpuscular Volume 92.9 fL (80.0-100.0); Mean Platelet Volume 9.5 fL (9.4-12.3); Platelet Count 226 K/uL (130-400); RDW Coefficient of Variation 13.6 % (11.5-14.5); RDW Standard Deviation 46.7 fL (36.4-46.3); Red Blood Count 3.54 M/uL (3.93-5.22); White Blood Count 19.47 K/ul (4.8-10.8)
--- NOTE | 2022-04-01 07:39 | Hospitalist Progress Note ---
Date of Service April 01, 2022 Assessment & Plan (1) Hypotension: Plan: improved s/p IV fluids following admission, ?related to anesthesia orthostatic vitals NEGATIVE Typically systolic BP 130s at home Given additional 500cc overnight BP 94/52 this morning, asymptomatic CBC --> Hgb 13.4--> 10.8 post operatively, acute blood loss anemia from surgery, but also got copious IVF post-operatively (total 3.3L IVF) BMP with stable kidney function Recommended to continue to hold atenolol, losartan for today Patient did report recent 10-20lb weight loss after dx diabetes and could need decreased BP medications -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 NO prior cardiac history (but does have faint systolic murmur of aortic stenosis, had cardiac workup in the past reported) (2) Hypertension: Plan: HOLD atenolol HOLD losartan see #1 above (3) Diabetes: Plan: last hemoglobin a1c was 5.8% in early 2021, repeat A1c 6.1 reports recent 10-20lb weight loss, cutting sugars from her diet encouraged continued dietary management at d/c and f/u PCP given increase but BSGs acceptable (4) Arthritis of knee, left: Plan: s/p left TKR today by Dr Gordon WBC elevation likely 2nd to decadron given pre-op 8mg , afebrile DVT proph - asa 81mg BID defer pain meds, dispo, etc to ortho team (5) Breast cancer: Plan: h/o noted (6) Rheumatoid arthritis: Plan: history of noted no active flare f/u with rheum (Dr Bernard) for routine care states hx of both rheumatoid and psoriatic arthritis (noted deformities to hands bilaterally) she is going to message Dr Bernard about use of celebrex after discharge (7) Hypothyroidism: Plan: TSH wnl cont synthroid (8) DVT prophylaxis: Plan: asa 81mg BID Plan Thank you for this consult. Per primary service, plans for discharge with PT. CM notified of discharge Admission and Anticipated Discharge Date Admission Date: March 31, 2022 Supervising Physician Co-Signing Physician Notes Attending Attestation - Chart reviewed, care plan d/w DREW Warner. I agree w/ the shaffer components of her documentation. Augustus Gonzalez MD Subjective eval this morning pain well controlled follows with Dr bernard and ortho wanting her to continue celebrex at discharge and she is skeptical given her CKD and going to check with him vs take for 2-3 days and use tylenol as she previously has in the past. Has both psoriatic and rheumatoid arthritis per her account, deformity of left pinky and had prior surgery w/ sandhya to middle finger right hand in the past. She has had mobic/celebrex in the past but stopped taking them when her kidney function progressed to CKD 3. Denies lightheaded/dizziness with BP 94/52 and typically BP systolic 130s at home but believes has been better since recent weight loss/dietary changes. 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 She wonders if one had to be cut back which would it be. No hx SVT/Afib/flutter, but does have DM (diet controlled) and after cutting a lot of sweets from diet has lost about 10-20 pounds. Discussed cutting back the atenolol but would touch base with her PCP. No fever/chills, chest pain, shortness of breath. Small BM and passing gas, no abdominal pain. Hopeful to go home today, will need to check home PT arranged as she's already followed by a company. Will check w/ CM to ensure arranged. Review of Systems Review of Systems: All systems reviewed & are unremarkable except as noted in HPI & below Physical Exam Physical Exam: General: WD/WN female sitting up in chair, NAD, anxious to go home HEENT: head normocephalic, mmm, anicteric sclerae, trachea midline without deviation (prior scar from thyroid nodule removed) Resp: CTAB, no w/c/r, on RA CV: RRR, faint systolic murmur, no m/r/g, no calf tenderness, minimal edema to LLE, CALVES NONTENDER, pulses palpable, well perfused GI: +BS, soft, nontender : no hood MSK/Neuro: hemovac to LEFT knee, bloody drainage present, dressing c/d/i with MALGORZATA wrap surrounding, calves supple, pulses palpable, strength 5/5 bilaterally Psych: AOx3, pleasant and cooperative Results & Data Results & Data ([facility]) Vital Signs (Past 12 Hours) Vital Signs Temp Pulse Resp BP Pulse Ox O2 Del Method 04/01/22 06:52 36.9 C 74 18 94/52 L 96 Room Air 04/01/22 02:30 66 97/54 L 04/01/22 01:44 37 C 74 18 107/57 L 95 Room Air 03/31/22 21:40 84 126/67 03/31/22 19:46 36.7 C 72 16 108/45 L 95 Room Air Laboratory Results 04/01/22 04/01/22 04/01/22 Range/Units 07:04 07:04 07:04 WBC 19.47 H (4.8-10.8) K/ul RBC 3.54 L (3.93-5.22) M/uL Hgb 10.8 L (12.0-16.0) g/dl Hct 32.9 L (34.1-44.9) % MCV 92.9 (80.0-100.0) fL MCH 30.5 (25.0-34.0) pg MCHC 32.8 (32.0-36.0) g/dL RDW Std Deviation 46.7 H (36.4-46.3) fL RDW Coeff of Hubert 13.6 (11.5-14.5) % Plt Count 226 (130-400) K/uL MPV 9.5 (9.4-12.3) fL Sodium 139 (136-145) mmol/L Potassium 4.0 (3.5-5.1) mmol/L Chloride 108 H (98-107) mmol/L Carbon Dioxide 23 (21-32) mmol/L Anion Gap 8 (3-11) BUN 23 (6-23) mg/dl Creatinine 1.00 (0.6-1.2) mg/dl Est Cr Clr Drug Dosing 49.0 ml/min Est GFR ( Amer) 67.0 ml/min Est GFR (Non-Af Amer) 57.8 ml/min BUN/Creatinine Ratio 23.0 H (10-20) Glucose 126 H (70-99(Fasting)) mg/dl Estimat Average Glucose 128 mg/dl Hemoglobin A1c 6.1 H (4.5-5.6) % Calcium 9.0 (8.5-10.1) mg/dl Magnesium 1.9 (1.7-2.4) mg/dl PG Care Time/CCT Total # of Minutes Spent Total Time Spent with Patient: Total time spent is greater than 50% in coordination of care (as documented) at patient's floor/unit and/or counseling patient: Coding Level of Care Code 08343 Subseq Hosp Care Lvl 2 Diagnoses Hypotension I95.9 Hypertension I10 Diabetes E11.9 Arthritis of knee, left M17.12 Breast cancer C50.511; Z17.0 Breast location: lower outer quadrant of breast Estrogen receptor status: positive Laterality: right Patient sex: female Rheumatoid arthritis M06.9 Hypothyroidism E03.9 DVT prophylaxis Z29.9 (1) Breast cancer Breast location: lower outer quadrant of breast Estrogen receptor status: positive Laterality: right Patient sex: female Qualified Code(s): C50.511 - Malignant neoplasm of lower-outer quadrant of right female breast; Z17.0 - Estrogen receptor positive status [ER+]
[2022-04-01 08:07] LABS: Estimated Average Glucose 128 mg/dl; Hemoglobin A1C 6.1 % (4.5-5.6)
[2022-04-01 08:10] LABS: Est GFR (Non-African American) 57.8 ml/min; Magnesium 1.9 mg/dl (1.7-2.4)
[2022-04-01] MEDS ORDERED: LOSARTAN POTASSIUM 50 MG TAB PO SCH (09:00)
[2022-04-01] MEDS ORDERED: MULTIVITAMIN TAB PO SCH (09:00)
[2022-04-01] MEDS ORDERED: ATENOLOL 25 MG TABLET PO SCH (09:00)
[2022-04-01] MEDS ORDERED: ANASTROZOLE 1 MG TAB PO SCH (09:00)
[2022-04-01] MEDS: DOCUSATE SODIUM 100 MG CAP PO SCH (09:50)
[2022-04-01] MEDS: ASPIRIN 81 MG ECTAB PO SCH (09:50)
[2022-04-01] MEDS: GABAPENTIN 300 MG CAP PO SCH (09:51)
--- NOTE | 2022-04-01 11:50 | Orthopedic Progress Note ---
Date of Service April 01, 2022 Assessment & Plan (1) History of total left knee replacement: Plan: POD #1 s/p Left TKA pt/ot dvt proph with GRETA/SCD/ASA plan for d/c home with HHPT later today. was initially OPJ but was admitted due to feeling dizzy and hypotension while ambulating prior to discharge. Admission and Anticipated Discharge Date Admission Date: March 31, 2022 Subjective POD #1 s/p Left TKA Review of Systems Constitutional: no fever, no chills and no sweats Respiratory: no cough and no dyspnea Cardiovascular: no chest pain and no dyspnea Gastrointestinal: no abdominal pain, no nausea and no vomiting Physical Exam Physical Exam: Vital Signs Temp 36.9 C 04/01/22 06:52 Pulse 74 04/01/22 06:52 Resp 18 04/01/22 06:52 BP 94/52 L 04/01/22 06:52 Pulse Ox 96 04/01/22 06:52 O2 Del Method 04/01/22 06:52 O2 Flow Rate 0 03/31/22 14:24 Intake & Output 03/31/22 04/01/22 04/01/22 18:59 06:59 18:59 Intake Total 1750 / 3310 860 / 3310 700 / 700 Output Total 5 / 255 250 / 255 Balance 1745 / 3055 610 / 3055 700 / 700 Intake: IV 200 / 1400 500 / 1400 700 / 700 Lactated Ringe r's 1,000 ml @ 15 0 / 0 mls/hr IV .Q24 H HERMINIA Rx#: [id number] Sodium Chlorid e 0.9% 1000ML 1, 700 / 700 000 ml @ 80 ml s/hr IV .[id number] HERMINIA Rx#:[id number] Sodium Chlorid e 0.9% 500 ml @ 500 / 500 80 mls/hr IV . Q6H15M HERMINIA Rx#: [id number] Tranexamic Aci d / 0.7% NaCl 1, 200 / 200 000 mg In 100 ml @ 600 mls/hr IV TODAY@0600 HERMINIA Rx#:[id number] IV Perioperative 1550 / 1550 Oral 360 / 360 Output: Estimated Blood Loss 5 / 5 Drain Output 0 / 250 250 / 250 Left Knee Hemo vac #1 0 / 250 250 / 250 Other: # Unmeasured Voi ds 1 Musculoskeletal: Left Leg: NVDI, calf SNT, negative dick sign. DP palpable, able to wiggle toes/ankle movement without difficulty. dressing clean dry and intact. Results & Data ([facility]) Vital Signs (Past 12 Hours) Vital Signs Temp Pulse Resp BP Pulse Ox O2 Del Method 04/01/22 06:52 36.9 C 74 18 94/52 L 96 Room Air 04/01/22 02:30 66 97/54 L 04/01/22 01:44 37 C 74 18 107/57 L 95 Room Air Laboratory Results Laboratory Results WBC 19.47 K/ul (4.8-10.8) H 04/01/22 07:04 RBC 3.54 M/uL (3.93-5.22) L 04/01/22 07:04 Hgb 10.8 g/dl (12.0-16.0) L 04/01/22 07:04 Hct 32.9 % (34.1-44.9) L 04/01/22 07:04 MCV 92.9 fL (80.0-100.0) 04/01/22 07:04 MCH 30.5 pg (25.0-34.0) 04/01/22 07:04 MCHC 32.8 g/dL (32.0-36.0) 04/01/22 07:04 RDW Std Deviation 46.7 fL (36.4-46.3) H 04/01/22 07:04 RDW Coeff of Hubert 13.6 % (11.5-14.5) 04/01/22 07:04 Plt Count 226 K/uL (130-400) 04/01/22 07:04 MPV 9.5 fL (9.4-12.3) 04/01/22 07:04 Sodium 139 mmol/L (136-145) 04/01/22 07:04 Potassium 4.0 mmol/L (3.5-5.1) 04/01/22 07:04 Chloride 108 mmol/L (98-107) H 04/01/22 07:04 Carbon Dioxide 23 mmol/L (21-32) 04/01/22 07:04 Anion Gap 8 (3-11) 04/01/22 07:04 BUN 23 mg/dl (6-23) 04/01/22 07:04 Creatinine 1.00 mg/dl (0.6-1.2) 04/01/22 07:04 Est Cr Clr Drug Dosing 49.0 ml/min 04/01/22 07:04 Est GFR ( Amer) 67.0 ml/min 04/01/22 07:04 Est GFR (Non-Af Amer) 57.8 ml/min 04/01/22 07:04 BUN/Creatinine Ratio 23.0 (10-20) H 04/01/22 07:04 Glucose 126 mg/dl (70-99(Fasting)) H 04/01/22 07:04 POC Glucose 125 mg/dl (70-99) H 03/31/22 09:11 Estimat Average Glucose 128 mg/dl 04/01/22 07:04 Hemoglobin A1c 6.1 % (4.5-5.6) H 04/01/22 07:04 Calcium 9.0 mg/dl (8.5-10.1) 04/01/22 07:04 Magnesium 1.9 mg/dl (1.7-2.4) 04/01/22 07:04 Blood Type A Negative 03/31/22 05:28 Antibody Screen NEGATIVE 03/31/22 05:28 Impressions Knee X-Ray 03/31/22 09:09 XR knee LT 1 or 2V routine CLINICAL HISTORY: Postoperative evaluation. COMPARISON: CT of the left knee February 04, 2022. FINDINGS: Alignment of the total left knee arthroplasty is anatomic. There is no periprosthetic fracture or lucency. Intramedullary sandhya with distal screw within the left femur are again noted. Surgical drains are in place. No unexpected radiopaque foreign bodies. IMPRESSION: Expected findings following total left knee arthroplasty. ACT 112: Negative or not required by law. Electronically signed by: Gaurav Caballero M.D. 03/31/2022 9:29 AM
--- NOTE | 2022-04-07 12:28 | Discharge Summary ---
Date of Service April 07, 2022 Admission HPI Per Admitting Provider Kamran is a pleasant 66-year-old female who presents for preop evaluation prior to left total knee replacement. She states she had a pain in his knee for many years now which is gradually worsened. Is now affecting her daily activities including walking standing on down steps. She tried previous injections including cortisone as well as viscosupplementation without relief, she is also undergoing Iovera injection prior. After discussing further treatment options she would like to proceed with a left total knee replacement. she also had prior left knee scope over 20 years ago. Admission Exam Per Admitting Provider Constitutional: WD/WN, vitals as above no acute distress Respiratory: normal respiratory effort, lungs clear to auscultation no respiratory distress, no labored breathing and does not use accessory muscles Cardiovascular: RRR, no murmur, no edema Gastrointestinal (Abdomen): normal bowel sounds, soft, nontender, no hepatosplenomegaly Musculoskeletal: Knee: + knee abnormal to inspection (Left Knee: ), + effusion (+1 effusion), + surgical incision (well healed portals), + limited ROM of knee (ROM 0/3/110), + knee ROM with crepitation, + joint line tenderness (medial joint line) and + Roro's sign positive; no deformity, no skin erythema, no ecchymosis, no valgus laxity, no varus laxity, anterior drawer test negative, Justice's sign negative and pivot shift test negative Principal Diagnosis Left knee osteoarthritis Discharge Data Allergies Allergy/AdvReac Type Severity Reaction Status Date / Time morphine Allergy Severe Cough, Verified 03/31/22 05:36 vomiting, and urinary retention sulfamethoxazole Allergy Intermediate Itchy rash Verified 03/31/22 05:36 trimethoprim Allergy Intermediate Itchy rash Verified 03/31/22 05:36 Bactrim Allergy Unknown Itchy rash Verified 11/04/16 11:01 Consultations 03/31/22 15:55 Consult Hospitalist Routine Procedures Performed Operation Date: 03/31/22 07:00 Actual Procedures p Left Total Knee Arthroplasty(Left) - Isai Gordon DO Ordered Studies 03/31/22 05:00 US - OR guided needle placemen Routine Hospital Course (1) Arthritis of knee, left: Patient:KAMRAN QUINN Admit Date:03/31/22 MR#:[id number] Att Phy:Isai Gordon D.O. Acct ID:[id number] Karen Phy:Avila Bowie D.O. Date:1955 Fam Phy: Age:66 Location:3W Sex:F Room/Bed:W355-1 cc: ~ *NOTICE TO RECEIVING CONSTITUTION PARTY/AGENCY This information is strictly Confidential and protected under [place] law. [place] law prohibits you from making any further disclosure of this information unless further disclosure is expressly permitted by the written consent of the person to whom it pertains or is authorized by law. A general authorization for the release of medical or other information is not sufficient for this purpose. Hospital accepts no responsibility if the information is made available to any other person, INCLUDING THE PATIENT. Date of Service April 01, 2022 Assessment & Plan (1) History of total left knee replacement: Plan: POD #1 s/p Left TKA pt/ot dvt proph with GRETA/SCD/ASA plan for d/c home with HHPT later today. was initially OPJ but was admitted due to feeling dizzy and hypotension while ambulating prior to discharge. Admission and Anticipated Discharge Date Admission Date: March 31, 2022 Subjective POD #1 s/p Left TKA Review of Systems Constitutional: no fever, no chills and no sweats Respiratory: no cough and no dyspnea Cardiovascular: no chest pain and no dyspnea Gastrointestinal: no abdominal pain, no nausea and no vomiting Physical Exam Physical Exam: Vital Signs Temp 36.9 C 04/01/22 06:52 Pulse 74 04/01/22 06:52 Resp 18 04/01/22 06:52 BP 94/52 L 04/01/22 06:52 Pulse Ox 96 04/01/22 06:52 O2 Del Method 04/01/22 06:52 O2 Flow Rate 0 03/31/22 14:24 Intake & Output 03/31/22 04/01/22 04/01/22 18:59 06:59 18:59 Intake Total 1750 / 3310 860 / 3310 700 / 700 Output Total 5 / 255 250 / 255 Balance 1745 / 3055 610 / 3055 700 / 700 Intake: IV 200 / 1400 500 / 1400 700 / 700 Lactated Ringe r's 1,000 ml @ 15 0 / 0 mls/hr IV .Q24 H HERMINIA Rx#: [id number] Sodium Chlorid e 0.9% 1000ML 1, 700 / 700 000 ml @ 80 ml s/hr IV .[id number] HERMINIA Rx#:[id number] Sodium Chlorid e 0.9% 500 ml @ 500 / 500 80 mls/hr IV . Q6H15M HERMINIA Rx#: [id number] Tranexamic Aci d / 0.7% NaCl 1, 200 / 200 000 mg In 100 ml @ 600 mls/hr IV TODAY@0600 HERMINIA Rx#:[id number] IV Perioperative 1550 / 1550 Oral 360 / 360 Output: Estimated Blood Loss 5 / 5 Drain Output 0 / 250 250 / 250 Left Knee Hemo vac #1 0 / 250 250 / 250 Other: # Unmeasured Voi ds 1 Musculoskeletal: Left Leg: NVDI, calf SNT, negative dick sign. DP palpable, able to wiggle toes/ankle movement without difficulty. dressing clean dry and intact. Results & Data ([facility]) Vital Signs (Past 12 Hours) Vital Signs Temp Pulse Resp BP Pulse Ox O2 Del Method 04/01/22 06:52 36.9 C 74 18 94/52 L 96 Room Air 04/01/22 02:30 66 97/54 L 04/01/22 01:44 37 C 74 18 107/57 L 95 Room Air Laboratory Results Laboratory Results WBC 19.47 K/ul (4.8-10.8) H 04/01/22 07:04 RBC 3.54 M/uL (3.93-5.22) L 04/01/22 07:04 Hgb 10.8 g/dl (12.0-16.0) L 04/01/22 07:04 Hct 32.9 % (34.1-44.9) L 04/01/22 07:04 MCV 92.9 fL (80.0-100.0) 04/01/22 07:04 MCH 30.5 pg (25.0-34.0) 04/01/22 07:04 MCHC 32.8 g/dL (32.0-36.0) 04/01/22 07:04 RDW Std Deviation 46.7 fL (36.4-46.3) H 04/01/22 07:04 RDW Coeff of Hubert 13.6 % (11.5-14.5) 04/01/22 07:04 Plt Count 226 K/uL (130-400) 04/01/22 07:04 MPV 9.5 fL (9.4-12.3) 04/01/22 07:04 Sodium 139 mmol/L (136-145) 04/01/22 07:04 Potassium 4.0 mmol/L (3.5-5.1) 04/01/22 07:04 Chloride 108 mmol/L (98-107) H 04/01/22 07:04 Carbon Dioxide 23 mmol/L (21-32) 04/01/22 07:04 Anion Gap 8 (3-11) 04/01/22 07:04 BUN 23 mg/dl (6-23) 04/01/22 07:04 Creatinine 1.00 mg/dl (0.6-1.2) 04/01/22 07:04 Est Cr Clr Drug Dosing 49.0 ml/min 04/01/22 07:04 Est GFR ( Amer) 67.0 ml/min 04/01/22 07:04 Est GFR (Non-Af Amer) 57.8 ml/min 04/01/22 07:04 BUN/Creatinine Ratio 23.0 (10-20) H 04/01/22 07:04 Glucose 126 mg/dl (70-99(Fasting)) H 04/01/22 07:04 POC Glucose 125 mg/dl (70-99) H 03/31/22 09:11 Estimat Average Glucose 128 mg/dl 04/01/22 07:04 Hemoglobin A1c 6.1 % (4.5-5.6) H 04/01/22 07:04 Calcium 9.0 mg/dl (8.5-10.1) 04/01/22 07:04 Magnesium 1.9 mg/dl (1.7-2.4) 04/01/22 07:04 Blood Type A Negative 03/31/22 05:28 Antibody Screen NEGATIVE 03/31/22 05:28 Impressions Knee X-Ray 03/31/22 09:09 XR knee LT 1 or 2V routine CLINICAL HISTORY: Postoperative evaluation. COMPARISON: CT of the left knee February 04, 2022. FINDINGS: Alignment of the total left knee arthroplasty is anatomic. There is no periprosthetic fracture or lucency. Intramedullary sandhya with distal screw within the left femur are again noted. Surgical drains are in place. No unexpected radiopaque foreign bodies. IMPRESSION: Expected findings following total left knee arthroplasty. ACT 112: Negative or not required by law. Electronically signed by: Gaurav Caballero M.D. 03/31/2022 9:29 AM Total Time Total Time Spent Total Time Spent (In Minutes): 5 Discharge Plan Discharge Items Patient Disposition: Home - Home Health Services Reason For Visit: Left Knee Degeneartive Joint Disease Discharge Diagnosis: Left Knee DJD Activity: Per Instructions section Weightbearing Comment: as tolerated with walker Non-emergency contact: Surgeon Call non-emergency contact if: you have any medication questions, your pain is not controlled, your temperature is above 101.5, your wound has increased redness and your wound has increased drainage Follow-up/Referrals: [facility] [Outside] (Per surgeon's office) Isai Gordon DO [Surgeon] - (Follow up with Dr. Gordon in 2 weeks from the day of your surgery for your first post operative appointment. ) Avila Bowie [Primary Care Provider] - Diet: Regular Addtl Attending Provider Instructions: * Your medications have been sent to your pharmacy prior to your surgery. Your medicines usually consist of a narcotic pain medication, aspirin, Tylenol, an antibiotic, and possibly a bowel stimulant. Please call with any questions about your medications. * *YOU SHOULD HOLD YOUR CIMZIA FOR APPROXIMATELY 2 WEEKS AFTER YOUR SURGERY. ACTIVITY RECOMMENDATIONS: SELF CARE INSTRUCTIONS AFTER TOTAL KNEE REPLACEMENT A. You may need to continue a physical therapy program after discharge from the hospital. There are several options available to you. Your doctor will assist you in selecting the best one for you. 1. An out-patient facility 2 to 3 times a week for therapy or home therapy. 2. Continue working on all exercises taught to you in the hospital. Your goals should be to increase bending of your knee to 90 degrees and beyond and to fully straighten your knee. B. You may progress at your own pace from walking with a walker or crutches to a cane; then to no assistive devices. C. Make walking a part of your daily routine. Be up as much as comfortable with rest periods throughout the day. Rest with leg elevation is very important. Use the ice wrap frequently for the first 3-4 weeks. D. There are no restrictions on activities. You may ride in a car, shop, participate in science professor and all social activities. E. Wear the long elastic stockings (GRETA hose) 20 hours a day for 2 weeks after surgery. They can be removed several times a day for laundering and for a bath. F. You may shower, no tub baths until cleared by your doctor. SPECIAL CARE INSTRUCTIONS: VERY IMPORTANT TO READ AND REVIEW A. There are a few signs you need to watch for after you are home. Call [facility] if you notice any of the followin. Increased severe knee pain. Some pain is expected especially when you exercise. 2. Increased swelling in your leg or knee; pain or swelling of the calf muscle in either lower leg. 3. Any fluid drainage from the incision. 4. Shortness of breath or chest pain. B. Please call [facility] at if you have any concerns or questions about your operation or recovery. The doctor or his nurse will return your call promptly. C. You must take antibiotics before dental work, bladder, bowel or other surgery. Your doctor will provide you with a permanent care to carry describing this precaution. IMPORTANT: * REMEMBER TO TAKE ASPIRIN, 81 MG, TWICE DAILY FOR 4 WEEKS UNLESS OTHERWISE DIRECTED. THIS IS YOUR BLOOD THINNER. * HIGH RISK PATIENTS MAY BE PRESCRIBED A STRONGER BLOOD THINNER. THIS WILL BE PROVIDED AT DISCHARGE. * CALL IF INCREASED PAIN, REDNESS, DRAINAGE OR FEVER GREATER THAT 101. * WEAR GRETA HOSE 20 HOURS PER DAY FOR 2 WEEKS. * LATASHA Dressing - This is a large suction dressing covering your incision. This will help pull any excess drainage from the wound and allow your incision to heal properly. You may shower with this if you can keep the unit outside of the shower. If any bleeding or leakage is noted please call your doctor's office. This will remain on your incision for 7 days and then should be removed. This can be done yourself or by the home nursing staff if applicable. The entire unit is disposable once removed. Once removed, keep incision clean and dry. If redness or drainage is noted, please call your surgeon. . Once your Latasha dressing has been removed, please follow wound care instructions below. * DERMABOND Prineo- This is a mesh tape dressing that is covered with glue. It should remain in place until the incision is properly healed, usually 10-14 days. This dressing is designed to naturally slough off. You may trim the excess mesh tape as it peels off. Incision may be briefly wet in a shower. Dry immediately by blotting with a clean, dry towel. Do not bath or swim until instructed by your doctor. Do not scratch, rub, or pick at the dressing. Do not apply any topical ointments or lotions until dressing is completely removed and/or instructed by your doctor. There may be a small piece of suture material at one end of your incision. Do not pull or trim this. If it is bothersome or catching on clothing, you may cover it with a band-aid. FOLLOW UP VISIT: If appointment is not already scheduled: Please call [facility] to make a follow-up appointment for 2 weeks after your surgery at . Pending Studies at Discharge: No Stand-Alone Forms: Anesthesia/Sedation, Adult, [facility] [employer], Opioid Pain Management Medications and DC Order Prescriptions: New polyethylene glycol 3350 [Miralax] 17 gram powder in packet 17 g PO DAILY PRN (Reason: constipation) Qty: 5 0RF aspirin [Ecotrin Low Strength] 81 mg tablet,delayed release (DR/EC) 81 mg PO BID 30 Days Qty: 60 0RF cefadroxil 500 mg capsule 500 mg PO BID Qty: 28 1RF acetaminophen 500 mg capsule 1,000 mg PO Q8H 14 Days Qty: 84 0RF oxycodone 5 mg tablet 5 mg PO Q4H MDD 6 PRN (Reason: pain) Qty: 30 0RF Continued losartan [Cozaar] 100 mg tablet 100 mg PO QAM Prolia 60 mg/mL syringe 60 mg SQ UD Rx Instructions: every 6 months multivitamin [Daily Multi-Vitamin] Tablet 1 tab PO UD Rx Instructions: take 4 days per week, opposite days of calcium Cimzia 400 mg/2 mL (200 mg/mL x 2) syringe kit 400 mg subcut Q30D Label Comments: pt stated "dr only injected 200mg this month due to surgery" gabapentin 300 mg capsule 300 mg PO BID kvng (Zingiber officinalis) 250 mg capsule 250 mg PO QAM anastrozole [Arimidex] 1 mg tablet 1 mg PO QAM atenolol 25 mg Tablet 25 mg PO QAM cinnamon bark 500 mg Capsule 500 mg PO QAM Caltrate 600 plus D 600 mg-20 mcg (800 unit) Tablet,Chewable 1 tab PO UD Rx Instructions: take 3 days per week levothyroxine 75 mcg tablet 75 mcg PO QAM Rx Instructions: advise pt labs due Discontinued turmeric 400 mg Capsule 400 mg PO QAM Discharge Orders: Discharge Order (Routine); Ordered 04/01/22 Ordered By: Jeferson Bates/Other Patient Handouts: Managing Type 2 Diabetes, Preventing Deep Vein Thrombosis, Knee Replacement Total Dc Admission Data Admit Date/Time: 03/31/22 15:26 Attending Provider: Isai Gordon Admit Provider: Isai Gordon Primary Care Provider: Avila Bowie Other Providers: Isai Blackburn ; Lala,Home Health Other Interventions: Discharge Summary Assessment (RN) Last Done: 04/01/22 12:07
== END 2022-04-01 13:50 | disposition home health service (06) ==
LOC: 3W 05:10 → ASU 05:10
DX: D62 Acute posthemorrhagic anemia; Z79.890 Hormone replacement therapy; Z79.899 Other long term (current) drug therapy; Z88.5 Allergy status to narcotic agent; M06.9 Rheumatoid arthritis, unspecified; Z88.2 Allergy status to sulfonamides; I95.81 Postprocedural hypotension; M17.12 Unilateral primary osteoarthritis, left knee; E11.9 Type 2 diabetes mellitus without complications; I10 Essential (primary) hypertension; Z85.3 Personal history of malignant neoplasm of breast

== ENCOUNTER 2022-10-13 08:08 | Observation (INO) ==
--- NOTE | 2022-09-24 10:40 | PAT Medication Instructions ---
Medication Instructions Date of Service September 24, 2022 Home Medications Medication Instructions Recorded levothyroxine 75 mcg tablet 75 mcg PO QAM #90 tabs 05/20/22 denosumab 60 mg/mL subcutaneous syringe (Prolia) 60 mg subcut UD losartan 100 mg tablet (Cozaar) 100 mg PO QAM anastrozole 1 mg tablet (Arimidex) 1 mg PO QAM certolizumab pegol 400 mg/2 mL (200 mg/mL x2) subcutaneous syringe kit (Cimzia) 400 mg subcut Q30D gabapentin 300 mg capsule 300 mg PO BID multivitamin (Daily Multi-Vitamin tablet) 1 tab PO UD atenolol 25 mg tablet 25 mg PO QAM calcium carbonate 600 mg-vitamin D3 20 mcg (800 unit) chewable tablet (Caltrate 600 plus D) 1 tab PO UD cinnamon bark 500 mg capsule 500 mg PO QAM levothyroxine 75 mcg tablet 75 mcg PO QAM meclizine 25 mg tablet 25 mg PO TID PRN Dizziness cyanocobalamin (vitamin B-12) 500 mcg tablet 500 mcg PO QAM turmeric 400 mg capsule 400 mg PO QAM Continue as directed denosumab 60 mg/mL subcutaneous syringe (Prolia) 60 mg subcut UD ASK your prescriber and surgeon anastrozole 1 mg tablet (Arimidex) 1 mg PO QAM certolizumab pegol 400 mg/2 mL (200 mg/mL x2) subcutaneous syringe kit (Cimzia) 400 mg subcut Q30D STOP taking 2 weeks before surgery (or as soon as possible if surgery is within 2 weeks) cinnamon bark 500 mg capsule 500 mg PO QAM turmeric 400 mg capsule 400 mg PO QAM DO NOT take the morning of surgery losartan 100 mg tablet (Cozaar) 100 mg PO QAM multivitamin (Daily Multi-Vitamin tablet) 1 tab PO UD calcium carbonate 600 mg-vitamin D3 20 mcg (800 unit) chewable tablet (Caltrate 600 plus D) 1 tab PO UD cyanocobalamin (vitamin B-12) 500 mcg tablet 500 mcg PO QAM Take morning of surgery With a small sip of water, OTHERWISE NOTHING TO EAT OR DRINK AFTER MIDNIGHT: gabapentin 300 mg capsule 300 mg PO BID atenolol 25 mg tablet 25 mg PO QAM levothyroxine 75 mcg tablet 75 mcg PO QAM meclizine 25 mg tablet 25 mg PO TID PRN Dizziness (if needed) Take evening before surgery gabapentin 300 mg capsule 300 mg PO BID meclizine 25 mg tablet 25 mg PO TID PRN Dizziness (if needed) Other Notes If you have any questions please call us at [phone] or [phone] or [phone] or [phone]
--- NOTE | 2022-09-24 13:03 | Anesthesiology Consultation ---
Date of Service September 24, 2022 Assessment & Plan (1) Encounter for pre-operative examination: - COVID screening: Per assessment on 09/24: No known COVID-19 positive contacts or current COVID-19 related symptoms. Travel screen negative. Patient vaccinated. At surgeon discretion if preop Covid testing being done. - Check BSG AM DOS - RUE limb restriction - S/P Left TKA (03/31/22): SAB at L3/4 (x1 attempt) + PNB at [facility]. No issues noted per post-op anesthesia progress note. Per discharge summary, "was initially OPJ but was admitted due to feeling dizzy and hypotension while ambulating prior to discharge." - Outpatient joint pathway: Per OR booking comments, plan for outpatient joint program. Patient seen at [facility] 09/24. Patient was planned for outpatient joint pathway for left TKA done 03/2022 at [facility] but had dizziness and hypotension issues prior to attempted discharge and patient ended up needing to stay overnight. Patient states she does not feel comfortable with outpatient pathway for upcoming right TKA. Left message with surgeon's office that surgery will need to be switched to inpatient pathway. Chart Review Chart Review: Acceptable Risk for Surgery and Patient seen in Pre Admission Testing Teaching & Discussion Pre-Anesthesia Teaching/Discussion Notes: Instructed NPO after midnight before surgery,except medications with 15 cc of water. Medication instructions provided according to the [facility] guidelines. History Surgery Operation Date: 10/13/22 11:55 Proposed Procedures p Right Total Knee Arthroplasty - Isai Gordon DO Height/Weight Height: 5 ft 2 in Weight: 69.4 kg Allergies Allergy/AdvReac Type Severity Reaction Status Date / Time morphine Allergy Severe Cough, Verified 09/24/22 10:20 vomiting, and urinary retention sulfamethoxazole Allergy Intermediate Itchy rash Verified 09/24/22 10:20 trimethoprim Allergy Intermediate Itchy rash Verified 09/24/22 10:20 Bactrim Allergy Unknown Itchy rash Verified 11/04/16 11:01 Medications Home Medications Medication Instructions Recorded Confirmed Last Taken denosumab 60 mg/mL subcutaneous 60 mg subcut UD 08/09/19 09/24/22 10/16/21 syringe (Prolia) losartan 100 mg tablet (Cozaar) 100 mg PO QAM 08/09/19 09/24/22 03/30/22 07:00 anastrozole 1 mg tablet (Arimidex) 1 mg PO QAM 12/24/20 02/23/23 08/30/22 04:10 certolizumab pegol 400 mg/2 mL 400 mg subcut Q30D 07/25/20 09/24/22 03/17/22 (200 mg/mL x2) subcutaneous syringe kit (Cimzia) gabapentin 300 mg capsule 300 mg PO BID 07/25/20 09/24/22 03/31/22 04:15 multivitamin (Daily Multi-Vitamin 1 tab PO UD 07/25/20 09/24/22 03/29/22 20:00 tablet) atenolol 25 mg tablet 25 mg PO QAM 03/30/22 09/24/22 03/31/22 04:15 calcium carbonate 600 mg-vitamin 1 tab PO UD 03/30/22 09/24/22 03/29/22 20:00 D3 20 mcg (800 unit) chewable tablet (Caltrate 600 plus D) cinnamon bark 500 mg capsule 500 mg PO QAM 03/30/22 09/24/22 03/26/22 levothyroxine 75 mcg tablet 75 mcg PO QAM #90 tabs 05/20/22 09/24/22 Unknown meclizine 25 mg tablet 25 mg PO TID PRN Dizziness 08/13/22 09/24/22 Unknown cyanocobalamin (vitamin B-12) 500 500 mcg PO QAM 09/24/22 09/24/22 Unknown mcg tablet turmeric 400 mg capsule 400 mg PO QAM 09/24/22 09/24/22 Unknown Past Medical History Medical History Diabetes Diet controlled History of thyroid nodule Hx of degenerative disc disease Neck Hx of vertigo HX: breast cancer Right breast lumpectomy + LND (RUE limb restriction) Hypertension Hypothyroidism Osteoarthritis Osteoporosis Psoriatic arthritis Rheumatoid arthritis Stenosis, cervical spine ROM limitations per pt- "Be careful" with positioning per PAT RN phone interview Exercise / Class Metabolic Activity II 4-5 Yardwork/Stairs/Walk up hill (+) Past Family History Family History Mother Hypertension Family/Other No problems noted. Grandmother (Maternal) Breast cancer, Onset Age: 58 Other No family history of adverse response to anesthesia Denies family history of Ovarian cancer Colorectal cancer Uterine cancer Past Surgical History Surgical History History of lumpectomy of right breast + LND History of open reduction and internal fixation (ORIF) procedure Left IM sandhya History of thyroid surgery marlena-thyroidectomy History of tubal ligation Hx of hand surgery Left middle finger Hx of total knee arthroplasty Left TKA (03/31/22): SAB at L3/4 (x1 attempt) + PNB at [facility]. No issues noted per post-op anesthesia progress note. Nausea and vomiting after administration of anesthetic agent S/P x1 S/P cataract surgery R/L S/P dilation and curettage S/P JENNIE-BSO S/P wisdom tooth extraction Past Anesthesia History Other (Elevated BP post-op requiring overnight stay after Left TKA) History of PONV History of PONV (No issues with Left TKA) Social History Smoking Status: Never smoker Do You Dip or Chew Tobacco: No Hx Alcohol Use: No substance use type: does not use Review of Systems Patient denies chest pain, shortness of breath, dyspnea on exertion, fever, chills, cough, wheezing, palpitations. Physical Exam Vital Signs VITALS BP 149/81 P 66 TEMP 98.8 SP02 96%RA RESP 16 PHYSICAL Decreased extension range of motion. Full TMJ range of motion. TMD 3 finger breaths Mallampati Score 2 Dentition: intact, + crowns (multiple) Lungs: clear throughout to auscultation Cardiac: regular rate and rhythm, no murmurs noted Spine: normal Carotid arteries: negative bruit Extremities: no edema Lab Results Anesthesia Preop Results Results Anesthesia Widget: WBC 7.81 K/ul (4.8-10.8) 09/24/22 Hgb 13.8 g/dl (12.0-16.0) 09/24/22 Hct 39.9 % (37.0-47.0) 09/24/22 Plt 274 K/uL (130-400) 09/24/22 Na 142 mmol/L (136-145) 09/24/22 K 4.2 mmol/L (3.5-5.1) 09/24/22 Cl 106 mmol/L (98-107) 09/24/22 CO2 29 mmol/L (21-32) 09/24/22 BUN 19 mg/dl (6-23) 09/24/22 Creat 0.93 mg/dl (0.6-1.2) 09/24/22 Glucose Level 103 mg/dl (70-99(Fasting)) H 09/24/22 PT 10.8 Seconds (9.0-12.0) 09/24/22 PTT 26.4 Seconds (21.0-31.0) 09/24/22 INR 1.0 (0.9-1.1) 09/24/22 HA1c 6.2 % (4.5-5.6) H 09/24/22 Urine Color Yellow 09/24/22 Urine Appearance Clear (Clear) 09/24/22 Urine pH 7.0 (4.5-7.5) 09/24/22 Urine Specific Dennis 1.013 (1.000-1.030) 09/24/22 Urine Protein Negative (Negative) 09/24/22 Urine Glucose (UA) Negative (Negative) 09/24/22 Urine Ketones Negative (Negative) 09/24/22 Urine Blood 2+ (Negative) H 09/24/22 Urine Nitrite Negative (Negative) 09/24/22 Urine Bilirubin Negative (Negative) 09/24/22 Urine Urobilinogen Negative (Negative) 09/24/22 Urine Leukocyte Esterase 1+ (Negative) H 09/24/22 Urine WBC (Auto) 5-10 /hpf (0-5) H 09/24/22 Urine RBC (Auto) 10-30 /hpf (0-4) H 09/24/22 Urine Hyaline Casts (Auto) 0 /lpf (0-5) 09/24/22 Urine Epithelial Cells (Auto) 10-20 /lpf (0-5) H 09/24/22 Urine Bacteria (Auto) Negative (Negative) 09/24/22 Blood Type A Negative 09/24/22 Antibody Screen NEGATIVE 09/24/22 Testing Electrocardiogram Date: 09/24/22 SR with first degree AVB at 64bpm. NS TWA. Chest X-Ray Date: 09/24/22 FINDINGS: The lungs are clear. Cardiac silhouette is normal in size. No pleural effusions. No pneumothorax. Sagittal clips are again seen overlying the right breast. IMPRESSION: No acute process. Echocardiogram Date: 08/15/19 LVEF 75%. No RWMA. Mild cLVH. Indeterminate diastolic function. Cervical Spine Date: 09/24/22 FINDINGS: Alignment of the cervical spine is anatomic. There is no evidence for cervical spine instability during flexion or extension. No fracture is present. There are no osseous lesions. Disc spaces are preserved. There is moderate anterior osteophytosis within the cervical spine. IMPRESSION:No evidence for cervical spine instability during flexion or extension. No cervical spine fractures. Multilevel degenerative changes within the cervical spine. COVID-19 Risk Screen Screening Information COVID-19 Screen Date: 09/24/22 Exposure 21 Days Family/Household +COVID Last 21 Days: No Exposure 10 Days Any COVID Exposure Last 10 Days: No Symptoms Last 10 Days Experienced COVID Sx Last 10 Days: No + COVID 0-90 Days COVID + in Last 0-90 Days: No
--- NOTE | 2022-09-25 13:43 | History & Physical Report ---
Date of Service September 25, 2022 date of surgery: 10/13/22 Procedure: Right Total Knee Arthroplasty Surgeon: Isai Gordon Assessment & Plan (1) Arthritis of right knee: Plan: Risks and benefits of procedure discussed in detail today, patient would like to proceed with a right total knee replacement as scheduled. Will place on ASA 81mg po bid x 1 month post op, f/u 2 weeks post op for routine post-operative care and x-ray, sooner if having any problems. will make arrangements for HHPT at the time of discharge, outpatient joint program. At this point in time, has failed conservative measures and would like to proceed with surgical intervention. Schedule for Iovera treatment prior to her surgery. The risks and benefits have been discussed including, but not limited to, risk of infection, nerve injury, stiffness, loss of motion, failure to improve, etc. Reasonable outcomes and options of treatment were discussed. An explanation of appropriate alternatives to the procedure that may be advantageous were discussed and their risks and benefits, as well as the risks and benefits of not proceeding with treatment. I offered to answer any additional inquiries concerning the treatment involved. All the patient's questions were answered. The patient is agreeable, understanding of the treatment plan and alternatives, and wishes to proceed with the treatment plan. History of Present Illness Chief Complaint: Right knee pain Primary Care Provider: Avila Rodriguez is a pleasant 67 year-old female who presents for preop evaluation prior to right total knee replacement. She states that she has had pain in this knee for many years now which is gradually worsened. Is now affecting her daily activities including walking standing on down steps. She tried previous injections including cortisone as well as viscosupplementation without relief, she is also undergoing Iovera injection prior. After discussing further treatment options she would like to proceed with a right total knee replacement. Allergies Allergy/AdvReac Type Severity Reaction Status Date / Time morphine Allergy Severe Cough, Verified 09/24/22 10:20 vomiting, and urinary retention sulfamethoxazole Allergy Intermediate Itchy rash Verified 09/24/22 10:20 trimethoprim Allergy Intermediate Itchy rash Verified 09/24/22 10:20 Bactrim Allergy Unknown Itchy rash Verified 11/04/16 11:01 Home Medications Medication Instructions Recorded Confirmed Type denosumab 60 mg/mL subcutaneous 60 mg subcut UD 08/09/19 09/24/22 History syringe (Prolia) losartan 100 mg tablet (Cozaar) 100 mg PO QAM 08/09/19 09/24/22 History anastrozole 1 mg tablet (Arimidex) 1 mg PO QAM 07/25/20 09/24/22 History certolizumab pegol 400 mg/2 mL 400 mg subcut Q30D 07/25/20 09/24/22 History (200 mg/mL x2) subcutaneous syringe kit (Cimzia) gabapentin 300 mg capsule 300 mg PO BID 07/25/20 09/24/22 History multivitamin (Daily Multi-Vitamin 1 tab PO UD 07/25/20 09/24/22 History tablet) atenolol 25 mg tablet 25 mg PO QAM 03/30/22 09/24/22 History calcium carbonate 600 mg-vitamin 1 tab PO UD 03/30/22 09/24/22 History D3 20 mcg (800 unit) chewable tablet (Caltrate 600 plus D) cinnamon bark 500 mg capsule 500 mg PO QAM 03/30/22 09/24/22 History levothyroxine 75 mcg tablet 75 mcg PO QAM #90 tabs 05/20/22 09/24/22 Rx meclizine 25 mg tablet 25 mg PO TID PRN Dizziness 08/13/22 09/24/22 History cyanocobalamin (vitamin B-12) 500 500 mcg PO QAM 09/24/22 09/24/22 History mcg tablet turmeric 400 mg capsule 400 mg PO QAM 09/24/22 09/24/22 History Past Med/Surg History Medical History Diabetes Diet controlled History of thyroid nodule Hx of degenerative disc disease Neck Hx of vertigo HX: breast cancer Right breast lumpectomy + LND (RUE limb restriction) Hypertension Hypothyroidism Osteoarthritis Osteoporosis Psoriatic arthritis Rheumatoid arthritis Stenosis, cervical spine ROM limitations per pt- "Be careful" with positioning per PAT RN phone interview Surgical History History of lumpectomy of right breast + LND History of open reduction and internal fixation (ORIF) procedure Left IM sandhya History of thyroid surgery marlena-thyroidectomy History of tubal ligation Hx of hand surgery Left middle finger Hx of total knee arthroplasty Left TKA (03/31/22): SAB at L3/4 (x1 attempt) + PNB at [facility]. No issues noted per post-op anesthesia progress note. Left Total Knee Arthroplasty(Left) [employer] persona size femur 7 narrow tibia EE polytwelve medial constrained patella 28 bella- Isai Gordon, Nausea and vomiting after administration of anesthetic agent S/P x1 S/P cataract surgery R/L S/P dilation and curettage S/P JENNIE-BSO S/P wisdom tooth extraction Family History Mother Hypertension Family/Other No problems noted. 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 How many Children do You have: 1 Feels Safe at Home: Yes Assistive Devices: Glasses and Hearing Aid - Bilateral Review of Systems Review of Systems: All systems reviewed & are unremarkable except as noted in HPI & below Constitutional: no fever, no chills and no sweats Respiratory: no cough and no dyspnea Cardiovascular: no chest pain, no dyspnea and no orthopnea Gastrointestinal: no abdominal pain, no nausea and no vomiting Musculoskeletal: as per Subjective / HPI Physical Exam Physical Exam: HT: 5ft 2in WT: 70.2kg Constitutional: WD/WN, vitals as above no acute distress Respiratory: normal respiratory effort, lungs clear to auscultation no respiratory distress, no labored breathing and does not use accessory muscles Cardiovascular: RRR, no murmur, no edema Gastrointestinal (Abdomen): normal bowel sounds, soft, nontender, no hepatosplenomegaly Musculoskeletal: Knee: + knee abnormal to inspection (Right Knee: ), + effusion (+1 effusion), + surgical incision (well healed portals), + limited ROM of knee (ROM 0/3/110), + knee ROM with crepitation, + joint line tenderness (medial joint line) and + Roro's sign positive; no deformity, no skin erythema, no ecchymosis, no valgus laxity, no varus laxity, anterior drawer test negative, Justice's sign negative and pivot shift test negative Results & Data Results & Data ([facility]) Diagnostic Findings Right Knee X-ray: Right knee series showing advanced degenerative changes to the right knee, narrowing of the medial compartment and patello-femoral joint with patellar spurring noted, findings showing joint space narrowing of the medial compartment and patello-femoral joint, osteophyte formation and subchondral sclerosis noted. overall varus alignment. no acute bony pathology noted.
--- NOTE | 2022-09-29 11:04 | History & Physical Report ---
Date of Service September 29, 2022 date of surgery: 10/13/22 Procedure: Right Total Knee Arthroplasty Surgeon: Isai Gordon History of Present Illness Primary Care Provider: Avila Bowie Allergies Allergy/AdvReac Type Severity Reaction Status Date / Time morphine Allergy Severe Cough, Verified 09/24/22 10:20 vomiting, and urinary retention sulfamethoxazole Allergy Intermediate Itchy rash Verified 09/24/22 10:20 trimethoprim Allergy Intermediate Itchy rash Verified 09/24/22 10:20 Bactrim Allergy Unknown Itchy rash Verified 11/04/16 11:01 Home Medications Medication Instructions Recorded Confirmed Type denosumab 60 mg/mL subcutaneous 60 mg subcut UD 08/09/19 09/24/22 History syringe (Prolia) losartan 100 mg tablet (Cozaar) 100 mg PO QAM 08/09/19 09/24/22 History anastrozole 1 mg tablet (Arimidex) 1 mg PO QAM 07/25/20 09/24/22 History certolizumab pegol 400 mg/2 mL 400 mg subcut Q30D 07/25/20 09/24/22 History (200 mg/mL x2) subcutaneous syringe kit (Cimzia) gabapentin 300 mg capsule 300 mg PO BID 07/25/20 09/24/22 History multivitamin (Daily Multi-Vitamin 1 tab PO UD 07/25/20 09/24/22 History tablet) atenolol 25 mg tablet 25 mg PO QAM 03/30/22 09/24/22 History calcium carbonate 600 mg-vitamin 1 tab PO UD 03/30/22 09/24/22 History D3 20 mcg (800 unit) chewable tablet (Caltrate 600 plus D) cinnamon bark 500 mg capsule 500 mg PO QAM 03/30/22 09/24/22 History levothyroxine 75 mcg tablet 75 mcg PO QAM #90 tabs 05/20/22 09/24/22 Rx meclizine 25 mg tablet 25 mg PO TID PRN Dizziness 08/13/22 09/24/22 History cyanocobalamin (vitamin B-12) 500 500 mcg PO QAM 09/24/22 09/24/22 History mcg tablet turmeric 400 mg capsule 400 mg PO QAM 09/24/22 09/24/22 History Past Med/Surg History Medical History Diabetes Diet controlled History of thyroid nodule Hx of degenerative disc disease Neck Hx of vertigo HX: breast cancer Right breast lumpectomy + LND (RUE limb restriction) Hypertension Hypothyroidism Osteoarthritis Osteoporosis Psoriatic arthritis Rheumatoid arthritis Stenosis, cervical spine ROM limitations per pt- "Be careful" with positioning per PAT RN phone interview Surgical History History of lumpectomy of right breast + LND History of open reduction and internal fixation (ORIF) procedure Left IM sandhya History of thyroid surgery marlena-thyroidectomy History of tubal ligation Hx of hand surgery Left middle finger Hx of total knee arthroplasty Left TKA (03/31/22): SAB at L3/4 (x1 attempt) + PNB at [facility]. No issues noted per post-op anesthesia progress note. Left Total Knee Arthroplasty(Left) [employer] persona size femur 7 narrow tibia EE polytwelve medial constrained patella 28 bella- Isai Gordon, DO Nausea and vomiting after administration of anesthetic agent S/P x1 S/P cataract surgery R/L S/P dilation and curettage S/P JENNIE-BSO S/P wisdom tooth extraction Family History Mother Hypertension Family/Other No problems noted. 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
[~2022-10-13 08:08] MED LIST changes: +ACETAMINOPHEN 500 MG TAB PO SCH; -ANAS1TAB59 PO; -ATEN-173 PO; +BUPIVACAINE 0.25% PF 30 ML VIAL ONE; +BUPIVACAINE 0.5 % 5 MG/1 ML PF 10ML VIAL ONE; -CALC-51 PO; -CERTKIT SQ; -CHOL100010 PO; -CYAN100020 PO; +DEXAMETHASONE SOD INJ 4 MG/ML VIAL ONE; +EPINEPHrine INJ 1 MG/ML AMP ONE; +FAMOTIDINE 20 MG TAB PO SCH; -GABA-113 PO; +GABAPENTIN 300 MG CAP PO SCH; -GING1CAP2 PO; -LEVO75TA5 PO; +LR 15ML/HR IV SCH; +LR 500ML BOLUS, THEN 15ML/HR IV SCH; -MELO7.5T5 PO; +METOCLOPRAMIDE HCL 10 MG TABLET PO SCH; -MULT-506 PO; -OPTIRAY 320 IV PRN; +ROPIVACAINE 0.5% HCL/PF 150 MG, BUPIVACAINE 0.75% MPF 20 ML, EPINEPHrine 30MG/30ML (OR ... INFIL SCH; +TRANEXAMIC ACID 1,000 MG **IV Intra-op IV SCH; +TRANEXAMIC ACID 1,000 MG **IV Pre-op IV SCH; +ceFAZolin 2000MG 2,000 MG/15 ML SYR IV SCH; +dexAMETHasone 4 MG TAB PO SCH; -losartin; -tumeric PO
--- NOTE | 2022-10-13 08:42 | History & Physical Bridge Note ---
Date of Service October 13, 2022 History & Physical Bridge Note I have examined the patient, reviewed the History & Physical and in the interval since the performance of the History & Physical I have noted the following changes of clinical significance: no changes noted
[2022-10-13] MEDS ORDERED: MIDAZOLAM HCL 1 MG/ML 2ML VIAL ONE ×2 (08:54→11:05)
[2022-10-13] MEDS ORDERED: fentaNYL citrate PF 100 MCG/2 ML VIAL ONE (08:54)
[2022-10-13] MEDS ORDERED: ORTHO JOINT ANESTHETIC ONE (10:32)
[2022-10-13] MEDS ORDERED: fentaNYL citrate PF 100 MCG/2 ML VIAL IV PRN (10:38)
[2022-10-13] MEDS ORDERED: ePHEDrine sulfate 50 MG/ML AMP IV PRN (10:38)
[2022-10-13] MEDS ORDERED: ONDANSETRON INJ 2 MG/ML 2 ML VIAL IV PRN ×2 (10:38→14:30)
[2022-10-13] MEDS ORDERED: ATROPINE SULFATE 0.1 MG/ML 10ML SYR IV PRN (10:38)
[2022-10-13] MEDS ORDERED: PROPOFOL IV EMULSION 10 MG/ML 20 ML VIAL IV ONE (11:27)
[2022-10-13] MEDS ORDERED: PHENYLEPHRINE 100MCG/ML 5ML SYR ONE (11:39)
--- NOTE | 2022-10-13 12:27 | Operative Report ---
Post Operative Report Pre & Post Diagnosis Operation Date: 10/13/22 10:45 Pre-Op Diagnosis: Osteoarthritis of Right Knee Post-Op Diagnosis: Osteoarthritis of Right Knee I identified the patient and participated in the time-out.: Yes Procedure Operation Date: 10/13/22 10:45 Actual Procedures p Right Total Knee Arthroplasty(Right) utilizing [employer] persona patient matched total knee arthroplasty size 6 standard femur tibia D polyeleven medial constrained patella 28 oval- Isai Gordon DO Surgeon Isai Gordon DO Utility Gelatin Maker DREW Negron Estimated Blood Loss 5 Findings Consistent with Post-Op Diagnosis Patient presents with severe end-stage tricompartmental DJD varus alignment subchondral sclerosis marginal osteophytes with eburnated [id number] moderate to large effusion Specimens Bone and cartilage Drains Medium bore Hemovac Anesthesia Type MAC Spinal Regional Complications none Disposition Disposition: Recovery Room Indications Patient resents with severe end-stage DJD right knee no response to conservative management patient's had previous corticosteroid injections viscosupplementation relative rest activity modification the above intraoperative findings were noted Description of Procedure After proper prepping and draping of the Right lower extremity anterior midline incision was made over the region of the extensor extensor mechanism after meticulous hemostasis was obtained and maintained in subcutaneous tissues a medial parapatellar incision was made The patella was subluxed lateralward the medial lateral gutter were cleaned from any hypertrophic synovitis and scar tissue of the distal femoral block was placed and the distal femoral osteotomy cut was made subsequently the chamfers anterior and posterior osteotomy cuts were made utilizing the 4-in-1 block the tibia was subsequently subluxed anteriorward medial and ateral meniscal remnants were excised in their entirety remnants of the anterior and posterior cruciate ligaments were excised in their entirety excellent exposure of the proximal tibia was obtained the tibial osteotomy guide was placed on the proximal tibial osteotomy cut was made once again the knee was irrigated with copious amounts of sterile saline solution the patella was subsequently everted lateralward thickened scar tissue around the patella was removed the patella was subsequently cut utilizing a freehand technique and was drilled prepared for final preparation and placement of patella socially flexion-extension gaps were checked and the equal and symmetric trials were placed to the appropriate femoral and tibial trials with poly-spacer being placed for equal flexion and extension gaps and full range of motion including extension to 0 and flexion to 140 the trial components after having been taken to recovery range of motion was subsequently removed meticulous hemostasis was obtained and maintained subsequently a knee block injection of joint cocktail including ropivacaine 0.5% 150 mg. Bupivacaine 0.5% epinephrine 1-200,030 mL's toradol 30 mg dexamethasone 4 mg ketamine 10 mg clonidine 100 micrograms normal saline solution 30 mg was infiltrated into the soft tissues of the posterior knee medial lateral gutters and periosteal synovium special attention was paid to protect neurovascular structures at all times subsequently trial components having been removed the knee was irrigated with sterile saline solution. debris was removed the proximal tibia was subsequently prepared and was made ready for the placement of the tibial component tibial component was also cemented and tamped into position the femoral component was subsequently placed and cemented in the position the patellar component was subsequently c emented in position because hemostasis once again obtained and maintained wound having been thoroughly irrigated with debridement and debridement lavage was performed as well as a medial parapatellar incision closed with #1 Vicryl in interrupted fashion subcutaneous was closed with #2 Vicryl skin was closed with skin clips. PA-C was necessary for prepping and drapping as well as wound closure of deep fascia Sub cutaneous tissue and skin and was necessary for the case. A sterile compressive dressing was placed patient was taken to recovery in stable condition of report dictated by Evan I attest to the content of the Intraoperative Record and any orders documented therein. Any exceptions are noted below.Due to the complex nature of the procedure, the entire surgery was performed with the operational assistance of GAB Negron. The showroom sales assistant, under direct supervision, was involved in the actual performance of all aspects of the surgical procedure including hemostasis, tissue retraction and incision, instrument management, patient positioning, and wound closure. I attest to the content of the Intraoperative Record and any orders documented therein. Any exceptions are noted below.
--- NOTE | 2022-10-13 13:30 | XRay Report ---
RIGHT KNEE 2 VIEWS History: Right total knee arthroplasty. Degenerative arthritis. Postop. FINDINGS: The patient is status post a right total knee arthroplasty. The hardware is intact. No frac ture or dislocation. Surgical drains are in place. IMPRESSION: Right total knee arthroplasty. No evidence for hardware complication. ACT 112: Negative or not required by law. Electronically signed by: Neo Forde M.D. 10/13/2022 1:29 PM
[2022-10-13] MEDS ORDERED: [UNRECOGNIZED DRUG - OTHER] PO SCH (14:30)
[2022-10-13] MEDS ORDERED: METOCLOPRAMIDE HCL INJ 5 MG/ML 2 ML VIAL IV PRN (14:30)
[2022-10-13] MEDS ORDERED: MAGNESIUM HYDROXIDE SUSP 30 ML UDC PO PRN (14:30)
[2022-10-13] MEDS ORDERED: oxyCODONE HCL IR 5 MG TAB (IMMEDIATE RELEASE) PO PRN (14:30)
[2022-10-13] MEDS ORDERED: bisacodyL 10 MG SUPP PR PRN (14:30)
[2022-10-13] MEDS ORDERED: LORazepam 0.5 MG TAB PO PRN (14:30)
[2022-10-13] MEDS ORDERED: CALCIUM CARBONATE VITAMIN D3 PO SCH (14:30)
[2022-10-13] MEDS ORDERED: diphenhydrAMINE Capsule 25 MG CAP PO PRN (14:30)
[2022-10-13] MEDS ORDERED: HYDROmorphone INJ 1 MG/ML SYRINGE IV PRN (14:30)
[2022-10-13] MEDS ORDERED: MECLIZINE HCL 25 MG TAB PO PRN (14:30)
[2022-10-13] MEDS ORDERED: NALOXONE HCL 0.4 MG/1 ML VIAL/CARP IV PRN (14:30)
[2022-10-13] MEDS: ACETAMINOPHEN 500 MG TAB PO SCH ×2 (15:27→22:38)
[2022-10-13] MEDS: KETOROLAC TROMETHAMINE 15 MG/ML VIAL IV SCH ×2 (15:27→20:48)
[2022-10-13] MEDS: SODIUM CHLORIDE 0.9% 1000ML 1,000 ML IV SCH (15:28)
--- NOTE | 2022-10-13 15:35 | Anesthesiology Progress Note ---
Date of Service October 13, 2022 Anesthesia Post Procedure Vital Signs Vital Signs: Temp Pulse Pulse Resp BP Pulse Ox O2 Del Method 10/13/22 15:30 36.6 C 55 L 16 101/58 L 97 Nasal Cannula 10/13/22 15:00 36.6 C 61 16 95/55 L 98 Nasal Cannula 10/13/22 14:32 36.6 C 62 16 100/59 L 96 Nasal Cannula 10/13/22 14:15 57 L 15 99/47 L 98 Nasal Cannula 10/13/22 14:05 36.4 C L 57 L 18 100/55 L 96 Nasal Cannula 10/13/22 13:55 60 12 104/52 L 92 Room Air 10/13/22 13:45 66 14 101/62 95 Room Air 10/13/22 13:35 59 L 12 104/47 L 98 Oxymask 10/13/22 13:25 63 14 99/51 L 98 Oxymask 10/13/22 13:18 36.1 C L 70 16 110/54 L 95 Oxymask 10/13/22 09:08 36.9 C 57 L 20 133/75 96 Room Air O2 Flow Rate 10/13/22 15:30 2 10/13/22 15:00 2 10/13/22 14:32 2 10/13/22 14:15 2 10/13/22 14:05 2 10/13/22 13:55 10/13/22 13:45 10/13/22 13:35 5 10/13/22 13:25 5 10/13/22 13:18 5 10/13/22 09:08 Pain Intensity Right Knee: Pain Intensity: 3 Transfer of Care Handoff Completed per policy Notes Mental Status: alert / awake / arousable Patient Amnestic to Procedure: Yes Nausea / Vomiting: adequately controlled Pain: adequately controlled Airway Patency, RR, SpO2: stable & adequate BP & HR: stable & adequate Hydration State: stable & adequate Neuraxial Anesthesia: was administered and sensory block is resolving Anesthetic Complications: no major complications apparent and Pt Satisfied with anesthetic care
[2022-10-13] MEDS: ceFAZolin 2000MG 2,000 MG/15 ML SYR IV SCH (18:31)
[2022-10-13] MEDS: ASPIRIN 81 MG ECTAB PO SCH (20:37)
[2022-10-13] MEDS: DOCUSATE SODIUM 100 MG CAP PO SCH (20:37)
[2022-10-13] MEDS: GABAPENTIN 300 MG CAP PO SCH (20:38)
[2022-10-13] MEDS ORDERED: SENNA 8.6 MG TAB PO SCH (21:00)
[2022-10-14] MEDS: SODIUM CHLORIDE 0.9% 1000ML 1,000 ML IV SCH (00:34)
[2022-10-14] MEDS: KETOROLAC TROMETHAMINE 15 MG/ML VIAL IV SCH ×2 (03:28→08:48)
[2022-10-14 03:43] VITALS: TEMP 98.1
[2022-10-14] MEDS: ceFAZolin 2000MG 2,000 MG/15 ML SYR IV SCH (04:00)
[2022-10-14] MEDS: ACETAMINOPHEN 500 MG TAB PO SCH (07:17)
--- NOTE | 2022-10-14 07:25 | Orthopedic Progress Note ---
Date of Service October 14, 2022 Assessment & Plan (1) History of total right knee replacement: Plan: POD #1 s/p Right TKA pt/ot dvt proph with GRETA/SCD/ASA plan for d/c home with HHPT after PT today Admission and Anticipated Discharge Date Admission Date: October 13, 2022 Subjective POD #1 s/p Right TKA Review of Systems Constitutional: no fever, no chills and no sweats Respiratory: no cough and no dyspnea Cardiovascular: no chest pain and no dyspnea Gastrointestinal: no abdominal pain, no nausea and no vomiting Physical Exam Physical Exam: Vital Signs Temp 36.7 C 10/14/22 03:42 Pulse 73 10/14/22 03:42 Resp 16 10/14/22 03:42 BP 120/58 L 10/14/22 03:42 Pulse Ox 95 10/14/22 03:42 O2 Del Method Room Air 10/14/22 03:42 O2 Flow Rate 2 10/13/22 16:30 Intake & Output 10/13/22 10/14/22 10/14/22 18:59 06:59 18:59 Intake Total 1800 / 2800 1000 / 2800 Output Total 35 / 1310 1275 / 1310 Balance 1765 / 1490 -275 / 1490 Weight 71.4 kg Intake: IV 200 / 1200 1000 / 1200 Lactated Ringe r's 1,000 ml @ 15 0 / 0 mls/hr IV .Q24 H HERMINIA Rx#: [id number] Sodium Chlorid e 0.9% 1000ML 1, 1000 / 1000 000 ml @ 100 m ls/hr IV .Q10H HERMINIA Rx#:[id number] Tranexamic Aci d / 0.7% NaCl 1, 200 / 200 000 mg In 100 ml @ 600 mls/hr IV TODAY@0600 HERMINIA Rx#:[id number] IV Perioperative 1600 / 1600 Output: Urine 1200 / 1200 Estimated Blood Loss 5 / 5 Drain Output 30 / 105 75 / 105 Right Knee Hem ovac 30 / 105 75 / 105 Other: Weight Measureme nt Method Standing Scale Musculoskeletal: Right Leg: NVDI, calf SNT, negative dick sign. DP palpable, able to wiggle toes/ankle movement without difficulty. dressing clean dry and intact. Results & Data ([facility]) Vital Signs (Past 12 Hours) Vital Signs Temp Pulse Resp BP Pulse Ox O2 Del Method 10/14/22 03:42 36.7 C 73 16 120/58 L 95 Room Air 10/13/22 20:41 37.1 C 69 18 124/65 95 Room Air
[2022-10-14 07:27] VITALS: BP 104/58; PULSE 74; O2SAT 96
--- NOTE | 2022-10-14 07:30 | Discharge Summary ---
Date of Service date of discharge: October 14, 2022 date of admission: 10-13-22 Principal Diagnosis right knee arthritis Discharge Exam Vital Signs Temp 36.7 C 10/14/22 07:26 Pulse 74 10/14/22 07:26 Resp 18 10/14/22 07:26 BP 104/58 L 10/14/22 07:26 Pulse Ox 96 10/14/22 07:26 O2 Del Method Room Air 10/14/22 07:26 O2 Flow Rate 2 10/13/22 16:30 Intake & Output 10/13/22 10/14/22 10/14/22 18:59 06:59 18:59 Intake Total 1800 / 2800 1000 / 2800 Output Total 35 / 1310 1275 / 1310 Balance 1765 / 1490 -275 / 1490 Weight 71.4 kg Intake: IV 200 / 1200 1000 / 1200 Lactated Ringer's 1,000 ml @ 15 0 / 0 mls/hr IV .Q24H HERMINIA Rx#: [id number] Sodium Chloride 0.9% 1000ML 1, 1000 / 1000 000 ml @ 100 mls/hr IV .Q10H [facility]MINIA Rx#:[id number] Tranexamic Acid / 0.7% NaCl 1, 200 / 200 000 mg In 100 ml @ 600 mls/hr IV TODAY@0600 HERMINIA Rx#:[id number] IV Perioperative 1600 / 1600 Output: Urine 1200 / 1200 Estimated Blood Loss 5 / 5 Drain Output 30 / 105 75 / 105 Right Knee Hemovac 30 / 105 75 / 105 Other: Weight Measurement Method Standing Scale Musculoskeletal Right knee: NVDI, calf SNT, negative dick sign. DP palpable, able to wiggle toes/ankle movement without difficulty. LATASHA dressing clean dry and intact. Discharge Data Allergies Allergy/AdvReac Type Severity Reaction Status Date / Time morphine Allergy Severe Cough, Verified 10/13/22 09:03 vomiting, and urinary retention sulfamethoxazole Allergy Intermediate Itchy rash Verified 10/13/22 09:03 trimethoprim Allergy Intermediate Itchy rash Verified 10/13/22 09:03 Bactrim Allergy Unknown Itchy rash Verified 11/04/16 11:01 Procedures Performed Operation Date: 10/13/22 10:45 Actual Procedures p Right Total Knee Arthroplasty(Right) - Isai Richards DO Ordered Studies 10/13/22 05:00 US - OR guided needle placemen Routine Hospital Course (1) History of total right knee replacement: POD #1 s/p Right TKA pt/ot dvt proph with GRETA/SCD/ASA plan for d/c home with HHPT after PT today Total Time Total Time Spent Total Time Spent (In Minutes): 20 Discharge Plan Discharge Items Patient Disposition: Home - Home Health Services Reason For Visit: Osteoarthritis Knee jRight Discharge Diagnosis: right total knee replacement Activity: Per Instructions section Non-emergency contact: Surgeon Call non-emergency contact if: you have any medication questions, your temperature is above 101, your wound has increased redness, your wound has increased drainage and your wound pain has increased Follow-up/Referrals: Avila Bowie [Primary Care Provider] - Diet: Regular Addtl Attending Provider Instructions: ACTIVITY RECOMMENDATIONS: SELF CARE INSTRUCTIONS AFTER TOTAL KNEE REPLACEMENT A. You may need to continue a physical therapy program after discharge from the hospital. There are several options available to you. Your doctor will assist you in selecting the best one for you. 1. An out-patient facility 2 to 3 times a week for therapy or home therapy. 2. Continue working on all exercises taught to you in the hospital. Your goals should be to increase bending of your knee to 90 degrees and beyond and to fully straighten your knee. B. You may progress at your own pace from walking with a walker or crutches to a cane; then to no assistive devices. C. Make walking a part of your daily routine. Be up as much as comfortable with rest periods throughout the day. Rest with leg elevation is very important. Use the ice wrap frequently for the first 3-4 weeks. D. There are no restrictions on activities. You may ride in a car, shop, participate in it software developer and all social activities. E. Wear the long elastic stockings (GRETA hose) 20 hours a day for 2 weeks after surgery. They can be removed several times a day for laundering and for a bath. F. You may shower, no tub baths until cleared by your doctor. SPECIAL CARE INSTRUCTIONS: VERY IMPORTANT TO READ AND REVIEW A. There are a few signs you need to watch for after you are home. Call [facility] if you notice any of the followin. Increased severe knee pain. Some pain is expected especially when you exercise. 2. Increased swelling in your leg or knee; pain or swelling of the calf muscle in either lower leg. 3. Any fluid drainage from the incision. 4. Shortness of breath or chest pain. B. Please call [facility] at if you have any concerns or questions about your operation or recovery. The doctor or his nurse will return your call promptly. C. You must take antibiotics before dental work, bladder, bowel or other surgery. Your doctor will provide you with a permanent care to carry describing this precaution. IMPORTANT: * REMEMBER TO TAKE ASPIRIN, 81 MG, TWICE DAILY FOR 4 WEEKS UNLESS OTHERWISE DIRECTED. THIS IS YOUR BLOOD THINNER. * HIGH RISK PATIENTS MAY BE PRESCRIBED A STRONGER BLOOD THINNER. THIS WILL BE PROVIDED AT DISCHARGE. * CALL IF INCREASED PAIN, REDNESS, DRAINAGE OR FEVER GREATER THAT 101. * WEAR GRETA HOSE 20 HOURS PER DAY FOR 2 WEEKS. DRESSING INSTRUCTIONS * LATASHA Dressing- This is a large suction dressing covering your incision. This will help pull any excess drainage from the wound and allow your incision to heal properly. You may shower with this if you can keep the unit outside of the shower. If any bleeding or leakage is noted please call your doctor's office. This will remain on your incision for 7 days and then should be removed. This can be done yourself or by the home nursing staff if applicable. The entire unit is disposable once removed. Once removed, keep incision clean and dry. If redness or drainage is noted, please call your surgeon. ONCE LATASHA IS REMOVED, FOLLOW THESE INSTRUCTIONS: DERMABOND Prineo- This is a mesh tape dressing that is covered with glue. It should remain in place until the incision is properly healed, usually 10-14 days. This dressing is designed to naturally slough off. You may trim the excess mesh tape as it peels off. Incision may be briefly wet in a shower. Dry immediately by blotting with a clean, dry towel. Do not bath or swim until instructed by your doctor. Do not scratch, rub, or pick at the dressing. Do not apply any topical ointments or lotions until dressing is completely removed and/or instructed by your doctor. There may be a small piece of suture material at one end of your incision. Do not pull or trim this. If it is bothersome or catching on clothing, you may cover it with a band-aid. IF INCISION IS LEAKING THROUGH DRESSING, CALL THE OFFICE . FOLLOW UP VISIT: If appointment is not already scheduled: Please call [facility] to make a follow-up appointment for 2 weeks after your surgery at . Stand-Alone Forms: My [facility] Medications and DC Order Prescriptions: New aspirin 81 mg Tablet,Delayed Release (Dr/Ec) 81 mg PO BID 30 Days Qty: 60 0RF acetaminophen [Tylenol Extra Strength] 500 mg Tablet 1,000 mg PO Q8 21 Days Qty: 126 0RF oxycodone 5 mg Tablet 5 - 10 mg PO Q6H PRN (Reason: pain) Qty: 30 0RF Rx Instructions: ongoing therapy, supervising dr jocelin richards. max 6 tabs in 24 hours cefadroxil 500 mg capsule 500 mg PO BID 14 Days Qty: 28 0RF Continued losartan [Cozaar] 100 mg tablet 100 mg PO QAM Prolia 60 mg/mL syringe 60 mg SQ UD Rx Instructions: every 6 months levothyroxine 75 mcg tablet 75 mcg PO QAM Qty: 90 3RF lorazepam [Ativan] 0.5 mg tablet 0.5 mg PO Q8H PRN (Reason: anxiety) Qty: 3 0RF multivitamin [Daily Multi-Vitamin] Tablet 1 tab PO UD Rx Instructions: take 4 days per week, opposite days of calcium Cimzia 400 mg/2 mL (200 mg/mL x 2) syringe kit 400 mg subcut Q30D Patient Comments: pt stated "dr only injected 200mg this month due to surgery" gabapentin 300 mg capsule 300 mg PO BID anastrozole [Arimidex] 1 mg tablet 1 mg PO QAM meclizine 25 mg tablet 25 mg PO TID PRN (Reason: Dizziness) cyanocobalamin (vitamin B-12) 500 mcg Tablet 500 mcg PO QAM turmeric 400 mg Capsule 400 mg PO QAM atenolol 25 mg Tablet 25 mg PO QAM Caltrate 600 plus D 600 mg-20 mcg (800 unit) Tablet,Chewable 1 tab PO UD Rx Instructions: take 3 days per week Discontinued cinnamon bark 500 mg Capsule 500 mg PO QAM Admission Data Admit Date/Time: 10/13/22 13:03 Attending Provider: Isai Richards Admit Provider: Isai Richards Primary Care Provider: Avila Bowie
[2022-10-14] MEDS: ASPIRIN 81 MG ECTAB PO SCH (08:48)
[2022-10-14] MEDS: DOCUSATE SODIUM 100 MG CAP PO SCH (08:48)
[2022-10-14] MEDS: GABAPENTIN 300 MG CAP PO SCH (08:48)
[2022-10-14] MEDS ORDERED: LEVOTHYROXINE SODIUM 75 MCG TABLET PO SCH (09:00)
[2022-10-14] MEDS ORDERED: ANASTROZOLE 1 MG TAB PO SCH (09:00)
[2022-10-14] MEDS ORDERED: LOSARTAN POTASSIUM 50 MG TAB PO SCH (09:00)
[2022-10-14] MEDS ORDERED: ATENOLOL 25 MG TABLET PO SCH (09:00)
[2022-10-14] MEDS ORDERED: CYANOCOBALAMIN (B-12) 500 MCG TABLET PO SCH (09:00)
[2022-10-14] MEDS ORDERED: MULTIVITAMIN TAB PO SCH (09:00)
[2022-10-14 09:03] LABS: Hematocrit (blood only) 34.4 % (37.0-47.0); Hemoglobin 11.6 g/dl (12.0-16.0); Mean Corpuscular Hemoglobin 30.9 pg (25.0-34.0); Mean Corpuscular Hgb Conc 33.7 g/dL (32.0-36.0); Mean Corpuscular Volume 91.5 fL (80.0-100.0); Mean Platelet Volume 9.5 fL (9.4-12.4); Platelet Count 235 K/uL (130-400); RDW Standard Deviation 47.3 fL (36.4-46.3); Red Blood Count 3.76 M/uL (4.20-5.40); White Blood Count 22.37 K/ul (4.8-10.8)
[2022-10-14 09:26] LABS: Calcium 8.3 mg/dl (8.5-10.1); Creatinine Clr Calc Pharmacy 49.1 ml/min; Est GFR (African American) 66.6 ml/min; Est GFR (Non-African American) 57.4 ml/min; Potassium 3.6 mmol/L (3.5-5.1)
== END 2022-10-14 15:26 | disposition home health service (06) ==
LOC: 3N 08:08 → ASU 08:08